=== PATIENT | female | born 1935 | race Caucasian/White ===

== ENCOUNTER 2020-03-09 18:53 | Emergency (ER) | payer OTHER ==
--- OUTSIDE RECORDS SUMMARY | 2020-03-09 18:55 | XMS REPORT ---
:1935 Author Organization [facility] t Address [address] [place] [address] [place] [address] Care Team Providers Name Role Phone Unavailable Unavailable Unavailable Problems This patient has no known problems. Allergies, Adverse Reactions, Alerts This patient has no known allergies or adverse reactions. Medications This patient has no known medications.
--- OUTSIDE RECORDS SUMMARY | 2020-03-09 18:56 | XMS REPORT | Summary of Care ---
:[address] [facility] Address [address] [place] [address] Care Team Providers Name Role Phone Lyle Reilly Atkinson Primary Care Provider Reason for Referral MRI/CAT Scan (Routine) Status Reason Specialty Diagnoses / Referred By Referred To Procedures Contact Contact New Request Diagnostic Diagnoses Myasthenia gravis without exacerbation Bertram Florian Radiology Procedures CT THORAX W WO SHYANNE Rascon MD [address] [place] [address]. [place] [address] Reason for Visit Reason Comments Follow-up Encounter Details Date Type Department Care Team Description 12/27/2019 [facility] Visit [facility] Bertram Florian Myasthenia g ravis without exacerbation (Primary Dx); Neurology-Patti Rascon MD Monocular diplopia of left eye; [address] [place] [address] [place] [phone] Allergies No Known Allergiesdocumented as of this encounter (statuses as of 12/30/2019) Medications Medication Sig Dispensed Refills Start Date End Date Status OMEPRAZOLE ORAL Take by mouth. 0 Active docusate sodium (COLACE Take by mouth. 0 Active ORAL) cranberry conc-ascorbic Take by mouth. 0 Active acid 4,200-20 mg Cap omega-3 fatty acids/fish Take by mouth. 0 Active oil (FISH OIL PEARLS ORAL) cholecalciferol, vitamin Take 1,000 Units 0 Active D3, (VITAMIN D3) 1,000 by mouth daily. unit (25 mcg) tablet BENEFIBER, WHEAT Take by mouth. 0 Active DEXTRIN, ORAL naproxen sodium (ALEVE Take by mouth. 0 Active ORAL) pyridostigmine 60 mg 1/2 tablet by 15 tablet 1 12/27/2019 Active tabletIndications: mouth twice per Myasthenia gravis day. without exacerbation documented as of this encounter (statuses as of 12/30/2019) Active Problems No known active problemsdocumented as of this encounter (statuses as of 12/30/2019) Social History Tobacco Use Types Packs/Day Years Used Date Never Smoker Smokeless Tobacco: Never Used Alcohol Use Drinks/Week oz/Week Comments Never Alcohol Habits Answer Date Recorded How often do you have a drink containing alcohol? Never 09/24/2019 How many drinks containing alcohol do you have on a typical Not asked day when you are drinking? How often do you have six or more drinks on one occasion? No t asked Sex Assigned at Date Recorded Not on file Job Start Date Occupation Industry Not on file Not on file Not on file Travel History Travel Start Travel End No recent travel history available. 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 Chief complaint: Question about myasthenia gravis. History: The patient does return to discuss testing results. 13 minutes of the 25 minute office visit was spent discussing test results. She is still having issues with blurred vision and sometimes shewill see double, she is not noticing any particular pattern to this symptomatology for time or day. She did have blood work done which had shown no positive antibodies, her C-reactive protein also had been unremarkable. Imaging study of the brain did not reveal any particular lesions and chest x-ray was negative. She is wanting to know what the next steps in the evaluation and management will be. PMH: has a past medical history of Arthritis and Cataract. She also has no past medical history of Myocardial infarction, Seizures, Stroke, or Substance abuse. Current Outpatient Medications: pyridostigmine 60 mg tablet, 1/2 tablet by mouth twice per day., Disp: 15 tablet, Rfl: 1 BENEFIBER, WHEAT DEXTRIN, ORAL, Take by mouth., Disp: , Rfl: cholecalciferol, vitamin D3, (VITAMIN D3) 1,000 unit (25 mcg) tablet, Take 1,000 Units by mouthdaily., Disp: , Rfl: cranberry conc-ascorbic acid 4,200-20 mg Cap, Take by mouth., Disp: , Rfl: docusate sodium (COLACE ORAL), Take by mouth., Disp: , Rfl: naproxen sodium (ALEVE ORAL), Take by mouth., Disp: , Rfl: omega-3 fatty acids/fish oil (FISH OIL PEARLS ORAL), Take by mouth., Disp: , Rfl: OMEPRAZOLE ORAL, Take by mouth., Disp: , Rfl: No family history on file. Social History Socioeconomic History Marital status: Spouse name: Not on file Number of children: Not on file Years of education: Not on file Highest education level: Not on file Occupational History Not on file Social Needs Financial resource strain: Not on file Food insecurity: Worry: Not on file Inability: Not on file Transportation needs: Medical: Not on file Non-medical: Not on file Tobacco Use Smoking status: Never Smoker Smokeless tobacco: Never Used Substance and Sexual Activity Alcohol use: Never Frequency: Never Drug use: Never Sexual activity: Not on file Lifestyle Physical activity: Days per week: Not on file Minutes per session: Not on file Stress: Not on file Relationships Social connections: Talks on phone: Not on file Gets together: Not on file Attends buddhist service: Not on file Active member of club or organization: Not on file Attends meetings of clubs or organizations: Not on file Relationship status: Not on file Intimate partner violence: Fear of current or ex partner: Not on file Emotionally abused: Not on file Physically abused: Not on file Forced sexual activity: Not on file Other Topics Concern Not on file Social History Narrative 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 Vital signs: BP 124/75 | Pulse 81 | Temp 37 C (98.6 F) (Oral) | Resp 16 | Ht 5' 2" (1.575 m) | Wt 148 lb(67.1 kg) | BMI 27.07 kg/m General findings: no new focal weakness of arms, UE tone unchanged, no new focal weakness of legs, LE tone unchanged. Patient is alert and oriented times 3, cooperative during the examination. Left eye with decrease downgaze. Ptosis as well with left eye. VFFTC. Corneal reflex not done. Pupils do react to light, but there is a slight anisocoria with left side larger than right. Finger to nose, heel to hansen, finger tapping normal. ASSESSMENT AND RECOMMENDATIONS: ICD-10-CM ICD-9-CM 1. Myasthenia gravis without exacerbation G70.00 358.00 2. Monocular diplopia of left eye H53.2 368.2 3. Blurred vision H53.8 368.8 Impression: Having a negative chest x-ray does make the possibility of a thymoma less but does not completely eliminate that risk. She is going to need a CT scan of the chest. If she gets the CT scan of the chest, if the results are positive for suspected thymoma, then further discussion would be entertained about what should be done. On the short term as well she might also try Mestinon. During someof the 13 minute discussion time, the risks and benefits of this medication were reviewed with her. She will initially try this medication while the CT scan is ordered and conducted. Creation of the note was aided by utilizing a cut/paste operation of text from a Microsoft Word template created with [employer]. The text was dictated into the template via [employer]. OPERATIONS CONTROLLER documented in this encounter Plan of Treatment Date Type Specialty Care Team Description 01/10/2020 Appointment Radiology Bertram Florian MD [address] [place], [place] [address]d. [place], [place] [phone] Name Type Priority Associated Diagnoses Order S chedule CT THORAX W WO CONTRAST IMAGING Routine Myasthenia gravis without Expected: exacerbation 12/27/2019, Exp ires: 12/27/2020 CREATININE LAB Routine Myasthenia gravis without Ex pected: exacerbation 12/27/2019, Exp ires: 12/27/2020 Health Maintenance Due Date Last Done Comments DTaP,Tdap,and Td Vaccines (1 - Tdap) 1946 Zoster Recombinant Vaccine (SHINGRIX) (1 of 2) 1985 Medicare Wellness Visit 2000 Osteoporosis Screening 2000 PNEUMOCOCCAL VACCINES 65+ (1 of 2 - PCV13) 2000 INFLUENZA VACCINE (#1) 2019 documented as of this encounter Results Not on filedocumented in this encounter Visit Diagnoses Diagnosis Myasthenia gravis without exacerbation - Primary Monocular diplopia of left eye Blurred vision Other specified visual disturbances documented in this encounter Insurance Payer Benefit Plan / Subscriber ID Effective Dates Phone Addre ss Type Group HUMANA - HUMANA [id number] 2019-[facility] MANAGED MEDICARE t S MEDICARE documented as of this encounter
--- OUTSIDE RECORDS SUMMARY | 2020-03-09 18:56 | XMS REPORT | Summary of Care ---
:1935 Author Organization [facility] Address [address] [place] [address] Care Team Providers Name Role Phone Melba Lyle Garzaton Primary Care Provider Reason for Referral MRI/CAT Scan (Routine) Status Reason Specialty Diagnoses / Referred By Referred To Procedures Contact Contact Closed Diagnostic Diagnoses Myasthenia gravis without exacerbation Myasthenia gravis without exacerbation Bertram Florian Radiology Procedures CT THORAX W WO CONTRAST CHG CAT SCAN OF CHEST COMBO CT THORAX W WO CONTRAST MD Abiodun [address] [place] [phone] Reason for Visit MRI/CAT Scan (Routine) Status Reason Specialty Diagnoses / Referred By Referred To Procedures Contact Contact Closed Diagnostic Diagnoses Myasthenia gravis without exacerbation Myasthenia gravis without exacerbation Bertram Florian Radiology Procedures CT THORAX W WO CONTRAST CHG CAT SCAN OF CHEST COMBO CT THORAX W WO CONTRAST MD Abiodun [address] [place] [phone] Encounter Details Date Type Department Care Team Description 01/10/2020 Hospital Encounter [facility] Mandy Florian Arrived [place] Comput[facility] MD Tomography [address] [place] [address] [place] [phone] [phone] Allergies No Known Allergiesdocumented as of this encounter (statuses as of 01/11/2020) Medications Medication Sig Dispensed Refills Start Date [...] as of this encounter (statuses as of 01/11/2020) Active Problems No known active problemsdocumented as of this encounter (statuses as of 01/11/2020) Social History Tobacco Use Types Packs/Day Years [...] of this encounter Last Filed Vital Signs Not on filedocumented in this encounter Plan of Treatment Name Type Priority Associated Diagnoses Order S chedule POCT CREATININE LAB Routine Myasthenia gravis without ONCE for 1 Occurrences exacerbation starting 2019 until 01/10/2020 Health Maintenance Due Date Last Done Comments DTaP,Tdap,and Td Vaccines (1 - Tdap) 1946 Zoster Recombinant Vaccine (SHINGRIX) (1 of 2) 1985 Medicare Wellness Visit 2000 Osteoporosis Screening 2000 PNEUMOCOCCAL VACCINES 65+ (1 of 2 - PCV13) 2000 INFLUENZA VACCINE (#1) 2019 documented as of this encounter Procedures Procedure Name Priority Date/Time Associated Diagnosis Comme nts CT THORAX W WO Routine 01/10/2020 8:41 Myasthenia gravis Resu lts for this CONTRAST AM CDT without exacerbation procedu re are in the results section. NOTICE OF PRIVACY Routine 01/10/2020 7:47 PRACTICES AM CDT CONSENT/REFUSAL FOR Routine 01/10/2020 7:46 DIAGNOSIS AND AM CDT TREATMENT ASSIGNMENT OF Routine 01/10/2020 7:46 BENEFITS AM CDT HB CREATININE BLOOD Routine 01/10/2020 7:37 Resu lts for this AM CDT procedure are i n the results section. documented in this encounter Results CT THORAX W WO CONTRAST (01/10/2020 8:41 AM CDT) Specimen Impressions Performed At PACS/VR/DOSE 1. No evidence for mediastinal mass is p resent to suggest thymoma. 2. Multiple nodular areas of gastric wall thickening a re identified within the gastric cardia and along the greater curvature of the stomach. The findings are suspicious for multifocal gastric masses. Upper endoscopy is recommended for further evaluation. 3. Bilateral renal cysts are present. 4. Cholecystectomy has been performed. RL: 2831 20 9:53 PM Narrative Performed At ORDERING PHYSICIAN: BERTRAM FLORIAN PACS/VR/DOSE CHEST CT ANGIOGRAM WITHOUT AND WITH INTR AVENOUS CONTRAST. DATE: 01/10/2020 CLINICAL INDICATIONS: Myasthenia gravis, evaluate for thymoma. TECHNIQUE: Axial CT images of the chest were obtaine d before and following the administration of 100 cc of Omnipaqu e 350 intravenously. 3D MIP reconstructions were also obtained. CT s can was performed according to ALARA (As Low as Reasonably Achievable). COMPARISON: None FINDINGS: The heart and great vessels op acify with contrast normally. No evidence for acute pulmonary embolus, th oracic aortic dissection or aneurysm is identified. The heart size i s normal. Evaluation of the lung windows demonstra chi no evidence for infiltrate, pleural effusion or pneumothorax. No zoila picious pulmonary nodules are identified. No pathologically enlarged mediastinal, hilar or axill jermaine lymph nodes are identified. The visualized upper abdomen demonstrates postoperative changes following cholecystectomy. Bilateral renal cysts are p resent. There appears to be patchy nodular soft tissue thickening in the gas tric cardia and along the greater curvature of the stomach, as visualized on image 243 of series 23 and image 276 of series 23. Gastric masses are susp ected to be present. Upper endoscopy is recommended for furth er characterization. No acute osseous abnormality is visualized. Procedure Note [facility], Radiant Results Inft User - 2019 9:55 PM CDT ORDERING PHYSICIAN: BERTRAM FLORIAN CHEST CT ANGIOGRAM WITHOUT AND WITH INTR AVENOUS CONTRAST. DATE: 01/10/2020 CLINICAL INDICATIONS: Myasthenia gravis, evaluate for thymoma. TECHNIQUE: Axial CT images of the chest were obtained before and following the administration of 100 cc of Omnipaqu e 350 intravenously. 3D MIP reconstructions were also obtained. CT s can was performed according to ALARA (As Low as Reasonably Achievable). COMPARISON: None FINDINGS: The heart and great vessels op acify with contrast normally. No evidence for acute pulmonary embolus, th oracic aortic dissection or aneurysm is identified. The heart size i s normal. Evaluation of the lung windows demonstra chi no evidence for infiltrate, pleural effusion or pneumothorax. No zoila picious pulmonary nodules are identified. No pathologically enlarged mediastinal, hilar or axillary lymph nodes are identified. The visualized upper abdomen demonstrates postoperative changes following cholecystectomy. Bilateral gabby al cysts are present. There appears to be patchy nodular soft tissue thicken ing in the gastric cardia and along the greater curvature of the stomach, as visualized on image 243 of series 23 and image 276 of series 23. Gastric m asses are suspected to be present. Upper endoscopy is recommended for furth er characterization. No acute osseous abnormality is visualized. IMPRESSION 1. No evidence for mediastinal mass is p resent to suggest thymoma. 2. Multiple nodular areas of gastric wal l thickening are identified within the gastric cardia and along the greater curvature of the stomach. The findings are suspicious for multifocal g astric masses. Upper endoscopy is recommended for further evaluation. 3. Bilateral renal cysts are present. 4. Cholecystectomy has been performed. RL: 2831 Performing Organization Address City/State/Zipcode Phone Number PACS/VR/DOSE POCT CREATININE (01/10/2020 7:37 AM CDT) Pathologist Sig nature POCT Creatinine 1.4 (H) 0.5 - 1.1 mg/dL [facility] Specimen Blood - VENOUS Performing Organization Address City/[facility]/Zipcode Phone Number [facility] CLIA: [id number], [address] [place] [address] documented in this encounter Visit Diagnoses Diagnosis Myasthenia gravis without exacerbation documented in this encounter Administered Medications Medication Order MAR Action Action Date Dose Rate Site iohexol (OMNIPAQUE 350 BULK-100 Given 01/10/2020 8:35 AM CDT 80 mL mL) injection 100 mL 100 mL, Intravenous, ONCE, 1 dose, 01/10/20 at 0815, Routine documented in this encounter Insurance Payer Benefit Plan / Subscriber ID Effective Dates Phone Addre ss Type Group HUMANA - HUMANA [id number] 2019-[facility] Adv MANAGED MEDICARE t FFS MEDICARE documented as of this encounter
--- OUTSIDE RECORDS SUMMARY | 2020-03-09 18:56 | XMS REPORT | Summary of Care ---
:1935 Author Organization [facility] Address [address] [place] [address] Care Team Providers Name Role Phone Lyle Reilly Garvin Primary Care Provider Reason for Referral MRI/CAT Scan (Routine) Status Reason Specialty Diagnoses / Referred By Referred To Procedures Contact Contact New Request Diagnostic Diagnoses Myasthenia gravis without exacerbation Bertram Florian Radiology Procedures CT THORAX W WO SHYANNE Rascon MD [address] [place] [address]. [place] [address] Reason for Visit Reason Comments Follow-up Encounter Details Date Type Department Care Team Description 12/27/2019 Office Visit [facility] Bertram Florian Myasthenia g ravis without exacerbation (Primary Dx); Neurology-Patti Rascon MD Monocular diplopia of left eye; [address] [place] [address] [place] [phone] Allergies No Known Allergiesdocumented [...] Comments Blood Pressure 124/75 12/27/2019 11:39 AM DATABASE DBA Pulse 81 12/27/2019 11:39 AM DATABASE DBA Temperature 37 C (98.6 F) 12/27/2019 11:39 AM DATABASE DBA Respiratory Rate 16 12/27/2019 11:39 AM DATABASE DBA Oxygen Saturation - - Inhaled Oxygen Concentration - - Weight 67.1 kg (148 lb) 12/27/2019 11:39 AM DATABASE DBA Height 157.5 cm (5' 2") 12/27/2019 11:39 AM DATABASE DBA Body Mass Index 27.07 12/27/2019 11:39 AM DATABASE DBA documented in this encounter Progress Notes Bertram [...] file Gets together: Not on file Attends baptism service: Not on file Active member of [...] file Social History Narrative 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 Vital signs: [...] from a Microsoft Word template created with [employer]. The text was dictated into the template via [employer] Naturally Speaking. BASE DBA documented in this encounter Plan of Treatment Date Type Specialty Care Team Description 01/10/2020 Appointment Radiology Bertram Florian MD [address] [place], [place] [address]. [place], [place] [phone] Name Type Priority Associated [...] Addre ss Type Group HUMANA - HUMANA [id number] 2019-[facility] MANAGED MEDICARE t S MEDICARE documented as of this encounter
--- OUTSIDE RECORDS SUMMARY | 2020-03-09 18:56 | XMS REPORT | Summary of Care ---
:1935 Author Organization [facility] Address [address] [place] [address] Care Team Providers Name Role Phone Lyle Reilly Primary Care Provider Reason for Visit Reason Comments Refill Request pyridostigmine 60 mg tablet Encounter Details Date Type Department Care Team Description 01/24/2020 Telephone [facility] Bertram Florian, Refill Request Neurology-Patti MICHEL (pyridostigmine [address]) [address], [address] [place] [phone] Allergies No Known Allergiesdocumented as of this encounter (statuses as of 01/24/2020) Medications Medication Sig Dispensed Refills Start Date End Date Status OMEPRAZOLE ORAL Take by 0 Acti ve mouth. docusate sodium Take by 0 Acti ve (COLACE ORAL) mouth. cranberry Take by 0 Active conc-ascorbic acid mouth. 4,200-20 mg Cap omega-3 fatty Take by 0 Active acids/fish oil (FISH mouth. OIL PEARLS ORAL) cholecalciferol, Take 1,000 0 Ac tive vitamin D3, (VITAMIN Units by D3) 1,000 unit (25 mouth mcg) tablet daily. BENEFIBER, WHEAT Take by 0 Act prabha DEXTRIN, ORAL mouth. naproxen sodium Take by 0 Acti ve (ALEVE ORAL) mouth. pyridostigmine 60 mg 1/2 tablet 15 tablet 3 01/24/2020 Active tabletIndications: by mouth Myasthenia gravis twice per without exacerbation day. pyridostigmine 60 mg 1/2 tablet 15 tablet 1 12/27/2019 02 Discontinued tabletIndications: by mouth 0 ( Reorder) Myasthenia gravis twice per without exacerbation day. documented as of this encounter (statuses as of 01/24/2020) Active Problems No known active problemsdocumented as of this encounter (statuses as of 01/24/2020) Social History Tobacco Use Types Packs/Day Years [...] filedocumented in this encounter Plan of Treatment Health Maintenance Due Date Last Done Comments [...] gravis without exacerbation documented in this encounter Insurance Payer Benefit Plan / Subscriber ID Effective Dates Phone Addre ss Type Group HUMANA - HUMANA [id number] 2019-[facility] Adv MANAGED MEDICARE t FFS MEDICARE documented as of this encounter
--- OUTSIDE RECORDS SUMMARY | 2020-03-09 18:56 | XMS REPORT | Summary of Care ---
:1935 Author Organization [facility] Address [address] [place] [address] Care Team Providers Name Role Phone Lyle Reilly Primary Care Provider Encounter Details Date Type Department Care Team Description 11/15/2019 Orders Only [facility] Doctor Unassigned, No [address] [facility] [place] [address] [address] [place] [address] Allergies No Known Allergiesdocumented as of this encounter (statuses as of 11/24/2019) Medications Medication Sig Dispensed Refills Start Date End Date Status OMEPRAZOLE ORAL Take by mouth. 0 Active docusate sodium (COLACE Take by mouth. 0 Active ORAL) cranberry conc-ascorbic Take by mouth. 0 Active acid 4,200-20 mg Cap omega-3 fatty Take by mouth. 0 Active acids/fish oil (FISH OIL PEARLS ORAL) cholecalciferol, Take 1,000 Units 0 Active vitamin D3, (VITAMIN by mouth daily. D3) 1,000 unit (25 mcg) tablet BENEFIBER, WHEAT Take by mouth. 0 Active DEXTRIN, ORAL naproxen sodium (ALEVE Take by mouth. 0 Active ORAL) documented as of this encounter (statuses as of 11/24/2019) Active Problems No known active problemsdocumented as of this encounter (statuses as of 11/24/2019) Social History Tobacco Use Types Packs/Day Years Used Date Never Smoker Alcohol Use Drinks/Week oz/Week Comments Never Alcohol [...] filedocumented in this encounter Plan of Treatment Date Type Specialty Care Team Description 12/20/2019 Office Visit Neurology Bertram Florian MD [address] [place] [address]. 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 Adv MANAGED MEDICARE t S MEDICARE documented as of this encounter
--- OUTSIDE RECORDS SUMMARY | 2020-03-09 18:56 | XMS REPORT | Summary of Care ---
:1935 Author Organization [facility] Address [address] [place] [id number] Care Team Providers Name Role Phone Lyle Reilly Primary Care Provider Reason for Visit Reason Comments Follow-up Results MRI Encounter Details Date Type Department Care Team Description 11/15/2019 Office Visit [facility] Bertram Florian Myasthenia g ravis without exacerbation (Primary Dx); Neurology-Patti Rascon MD Monocular diplopia of left eye; [address] [place] [address] Cerebrovas cular disease [facility], [address] [facility] [place] [phone] Allergies No Known Allergiesdocumented as of this encounter (statuses as of 11/16/2019) Medications Medication Sig Dispensed Refills Start Date [...] as of this encounter (statuses as of 11/16/2019) Active Problems No known active problemsdocumented as of this encounter (statuses as of 11/16/2019) Social History Tobacco Use Types Packs/Day Years [...] Sign Reading Time Taken Comments Blood Pressure 134/73 11/15/2019 2:41 PM OUTSOLE CEMENTER Pulse 77 11/15/2019 2:41 PM OUTSOLE CEMENTER Temperature 36.3 C (97.3 F) 11/15/2019 2:41 PM OUTSOLE CEMENTER Respiratory Rate 16 11/15/2019 2:41 PM OUTSOLE CEMENTER Oxygen Saturation - - Inhaled Oxygen Concentration - - Weight 67.2 kg (148 lb 4 oz) 11/15/2019 2:41 PM OUTSOLE CEMENTER Height 157.5 cm (5' 2") 11/15/2019 2:41 PM OUTSOLE CEMENTER Body Mass Index 27.12 11/15/2019 2:41 PM OUTSOLE CEMENTER documented in this encounter Progress Notes Bertram Florian MD - 11/15/2019 2:40 PM CST Neurology Clinic Note: CHIEF COMPLAINT / REASON FOR VISIT: Follow up for diplopia. The patient was seen, and examined with SENIOR PROJECT LEADER/TEAM LEAD Marina Rodriguez. The ultimate impression and plan of care was also discussed with the SENIOR PROJECT LEADER/TEAM LEAD. HISTORY OF PRESENT ILLNESS: Rupali Yee is a 84 year old female presenting for follow up for blurry vision and diplopia involving the left eye. She reports that she has blurry vision in her left eye that is worse with activities straining her eyes like reading. It also worsens when turning her head. She denies loss of vision, headache, dizziness, and syncope. Labs taken and last visit were negative for acetylcholine binding ab and acetylcholine blocking ab. Thyroid function tests were also within normal limits. Brain MRI and CXR were done to rule out any lesions or neoplasms. She states it is not constant, but continues to happen in the left eye. She states it is not getting any worse. She reports going to her handle machine operator at [employer] [facility] [facility] recently. ADDITIONAL PAST MEDICAL AND SURGICAL HISTORY: Past Medical History: Diagnosis Date Arthritis Cataract Past Surgical History: Procedure Laterality Date APPENDECTOMY EYE SURGERY HYSTERECTOMY JOINT SURGERY TONSILLECTOMY CURRENT MEDICATIONS: Current Outpatient Medications: BENEFIBER, WHEAT DEXTRIN, ORAL, Take by mouth., [...] ORAL, Take by mouth., Disp: , Rfl: FAMILY HISTORY: No family history pertinent to the visit was present. SOCIAL HISTORY: Denies tobacco, EtOH, illicit drugs. REVIEW OF SYSTEMS: ALLERGY/IMMUNOLOGY: Low resistance to infection: no. Environmental allergies: no. CARDIOVASCULAR: Chest pain or angina: no. Irregular heart rhythm: no. CONSTITUTIONAL: Recent weight changes: no. Good general health lately: no. Recurrent fevers, chills, sweats: no. Extreme fatigue: no. Frequent nausea, vomiting: no. Difficulty sleeping: no. EARS, NOSE, MOUTH, THROAT: Change in hearing: no. Ringing in the ears: no. Recent nose bleeds: no. Chronic sinus problems: no. Voice changes: no. EYES: Change in vision: no. Glaucoma: no. ENDOCRINE: Heat or cold intolerance: no. Excess thirst or urination: no. GASTROINTESTINAL: Change in appetite: no. Severe heart burn: no. Vomiting blood: no. Frequent diarrhea: no. Constipation: no. Black or bloody stools: no. Abdominal pain: no. GENITOURINARY: Kidney stone: no. Blood in urine: no. Burning with urination: no. Difficult/frequent urination: no. Lack of bladder control: no. Sexually transmitted disease: no. Change in sexualfunction: no. HEMATOLOGIC/LYMPHATIC: Easy bruising: no. Frequent bleeding: no. Enlarged lymph nodes: no. INTEGUMENTARY: Unusual or prolonged rashes: no. Breast pain or lump: no. Change in hair or nails:no. MUSCULOSKELETAL: Joint swelling: no. Difficulty walking: no. NEUROLOGICAL: Headaches: no. Numbness / tingling sensation: no. Weakness or paralysis: no. Convulsions or seizures: no. Change in memory/concentration: no. Loss or blurring of vision or double vision: no. Black-outs / dizziness: no. Memory loss or confusion: no. Other neurological problems: no. PAIN: Joint stiffness or pain: no. Muscle pain: no. Neck pain: no. Back pain: no. Other pain: no. PSYCHIATRIC: Nervousness: no. Depression: no. Other: no. RESPIRATORY: Breathing problems / shortness of breath: no. Coughing up blood: no. Chronic cough: no. I advised patient to inform PCP about all of the above issues. PHYSICAL EXAM: GENERAL: No acute distress. Alert and oriented X4. HEENT: Pupils equal, round, and reactive to light and accomodation. Extraocular movements intact without nystagmus. HEART: Regular rate and rhythm, with no murmurs, rubs, or gallops. LUNGS: Clear to auscultation bilaterally. ABDOMEN: Soft, nontender, nondistended, with normal bowel sounds present. EXTREMITIES: No cyanosis, clubbing, or edema. CAROTIDS: No bruits heard on either side. NEUROLOGICAL: Pupils equal, round, and reactive to light and accomodation intact (cranial nerves 2 and 3). Extraocular movements (cranial nerves 3, 4, and 6) intact without nystagmus. However, she has diminished left lateral/down gaze and intermittent reduced left inferior/down gaze. Peripheral field intact, no loss of vision. Double vision with peripheral field vision check left lateral, and left inferior lateral. Bilateral ophthalmoscopic exam reveals no papilledema. Facial sensation (cranial nerve 5) intact and symmetrical. Facial strength (cranial nerve 7) intact and symmetrical. Hearing (cranial nerve 8) intact to finger rub bilaterally. Speech and palate movement (cranial nerve 9 and 10) intact with symmetrical palate elevation. Shoulder shrug and head turning (cranial nerve 11) intact bilaterally. Tongue protrusion and lateral movements (cranial nerve 12) intact and symmetrical. Strength 5/5 in all extremities. Light touch sensation intact and symmetrical. Deep tendon reflexes 2+ in all extremities. Babinski testing reveals downgoing toes bilaterally.Negative Bonilla bilaterally. Rapid finger tapping intact bilaterally. [id number] intact bilaterally. Tandem gait intact. Standard gait intact. Recent memory intact. Remote memory intact. Attention span and concentration intact. Language intact. Good fund of knowledge. VITAL SIGNS: BP 134/73 | Pulse 77 | Temp 36.3 C (97.3 F) (Oral) | Resp 16 | Ht 5' 2" (1.575 m) | Wt 148 lb 4 oz (67.2 kg) | BMI 27.12 kg/m WE REVIEWED THE PATIENT'S LABS AND STUDIES. 11/04/2019 MR BRAIN WO CONTRAST COMPARISON: None. HISTORY: 84-year-old female who is currently suspected to have myasthenia gravis, complaining of diplopia and left eye blurry vision. TECHNIQUE: A multi weighted multiplanar 1.5 Ada MRI of the brain was obtained without contrast. FINDINGS: The ventricles and cerebral sulci are normal in caliber and configuration. No midline shift, hydrocephalus or pathological extra-axial fluid collection is present. The basal cisterns are unremarkable. No restricted diffusion is present to suggest acute infarct. Scattered T2/FLAIR white matter hyperintensities are seen, consistent with small vessel ischemic changes. No abnormal gradient blooming. The T2 flow voids for the major intracranial vessels are unremarkable. No abnormal fluid signal is present in the mastoid air cells. A small right maxillary retention cyst is seen. IMPRESSION No acute intracranial findings. Mild small vessel ischemic changes. Preliminary Report Dictated by Resident: Zee Constantino I, Greta Sims MD., have reviewed this study and agree with the above Report. 11/09/2019 CXR HISTORY: Possible Gen syndrome. TECHNIQUE: PA and lateral views of the chest are obtained. No prior chest CT available for comparison. FINDINGS: No acute pneumonia detected. No pneumothorax or pleural effusion or pulmonary congestion. Cardiothoracic ratio of approximately 12.5/29.1 cm is consistent with normal cardiac size. Elongated and dilated thoracic aorta noted. Cholecystectomy noted. CONCLUSIONS: No signs of acute cardiopulmonary disease. ASSESSMENT AND PLAN: ICD-10-CM ICD-9-CM 1. Myasthenia gravis without exacerbation G70.00 358.00 2. Monocular diplopia of left eye H53.2 368.2 3. Cerebrovascular disease I67.9 437.9 Rupali Yee is a 84 year old female presenting for follow up with question of myasthenia gravisand also blurred vision. Acetylcholine binding ab and acetylcholine blocking ab were negative. However, this does not rule out myasthenia gravis. She has no peripheral field deficits or vision loss. MRI brain and CXR negative for mass or neoplasm as an etiology. However, when reviewing images with Dr. Florian, there is a questionable small stroke in the right medulla and a signal change in left rylie. She will need to go to an golf teacher for evaluation to rule out optical etiology. She would like to go to the golf teacher upstairs here in town, as she does not want to drive far. Consider CRP. It is possible, she has ocular myasthenia, consider a trial of mestinon at the next OV. Myasthenia gravis without exacerbation (primary encounter diagnosis) Plan: C-REACTIVE PROTEIN to rule out myasthenia gravis Monocular diplopia of left eye Plan: Refer to ophthalmology for evaluation and consult. SENIOR PROJECT LEADER/TEAM LEAD and Dr. Florian spent 25 minutes on the visit, and greater than 13 minutes was spent in discussing and reviewing the digital MRI images. Plan of care discussed with Dr. Florian, who was asked for opinion on assessment, diagnosis and planof care regarding patient. Plan also discussed with patient/family, all questions answered. Return to clinic in 1 months. Marina CAIN, Department of Neurology arina Rodriguez ANP - 11/15/2019 2:40 PM OUTSOLE CEMENTER CHIEF COMPLAINT / REASON FOR VISIT: Follow up for diplopia HISTORY OF PRESENT ILLNESS: Rupali Yee is a 84 year old female presenting for follow up for blurry vision and diplopia involving the left eye. She reports that she has blurry vision in her left eye that is worse with activities straining her eyes like reading. It also worsens when turning her head. She denies loss of vision, headache, dizziness, and syncope. Labs taken and last visit were negative for acetylcholine binding ab and acetylcholine blocking ab. Thyroid function tests were also within normal limits. Brain MRI and CXR were done to rule out any lesions or neoplasms. She states it is not constant, but continues to happen in the left eye. She states it is not getting any worse. She reports going to her handle machine operator at [employer] [employer] [facility] recently. ADDITIONAL PAST MEDICAL AND SURGICAL HISTORY: Past Medical History: Diagnosis Date Arthritis Cataract Past Surgical History: Procedure Laterality Date APPENDECTOMY EYE SURGERY HYSTERECTOMY JOINT SURGERY TONSILLECTOMY CURRENT MEDICATIONS: Current Outpatient Medications: BENEFIBER, WHEAT DEXTRIN, ORAL, Take by mouth., [...] ORAL, Take by mouth., Disp: , Rfl: FAMILY HISTORY: No family history on file. SOCIAL HISTORY: Denies tobacco, EtOH, illicit drugs. REVIEW OF SYSTEMS: ALLERGY/IMMUNOLOGY: Low resistance to infection: no. Environmental allergies: no. CARDIOVASCULAR: Chest pain or angina: no. Irregular heart rhythm: no. CONSTITUTIONAL: Recent weight changes: no. Good general health lately: no. Recurrent fevers, chills, sweats: no. Extreme fatigue: no. Frequent nausea, vomiting: no. Difficulty sleeping: no. EARS, NOSE, MOUTH, THROAT: Change in hearing: no. Ringing in the ears: no. Recent nose bleeds: no. Chronic sinus problems: no. Voice changes: no. EYES: Change in vision: no. Glaucoma: no. ENDOCRINE: Heat or cold intolerance: no. Excess thirst or urination: no. GASTROINTESTINAL: Change in appetite: no. Severe heart burn: no. Vomiting blood: no. Frequent diarrhea: no. Constipation: no. Black or bloody stools: no. Abdominal pain: no. GENITOURINARY: Kidney stone: no. Blood in urine: no. Burning with urination: no. Difficult/frequent urination: no. Lack of bladder control: no. Sexually transmitted disease: no. Change in sexualfunction: no. HEMATOLOGIC/LYMPHATIC: Easy bruising: no. Frequent bleeding: no. Enlarged lymph nodes: no. INTEGUMENTARY: Unusual or prolonged rashes: no. Breast pain or lump: no. Change in hair or nails:no. MUSCULOSKELETAL: Joint swelling: no. Difficulty walking: no. NEUROLOGICAL: Headaches: no. Numbness / tingling sensation: no. Weakness or paralysis: no. Convulsions or seizures: no. Change in memory/concentration: no. Loss or blurring of vision or double vision: no. Black-outs / dizziness: no. Memory loss or confusion: no. Other neurological problems: no. PAIN: Joint stiffness or pain: no. Muscle pain: no. Neck pain: no. Back pain: no. Other pain: no. PSYCHIATRIC: Nervousness: no. Depression: no. Other: no. RESPIRATORY: Breathing problems / shortness of breath: no. Coughing up blood: no. Chronic cough: no. I advised patient to inform PCP about all of the above issues. PHYSICAL EXAM: GENERAL: No acute distress. Alert and oriented X4. HEENT: Pupils equal, round, and reactive to light and accomodation. Extraocular movements intact without nystagmus. HEART: Regular rate and rhythm, with no murmurs, rubs, or gallops. LUNGS: Clear to auscultation bilaterally. ABDOMEN: Soft, nontender, nondistended, with normal bowel sounds present. EXTREMITIES: No cyanosis, clubbing, or edema. CAROTIDS: No bruits heard on either side. NEUROLOGICAL: Pupils equal, round, and reactive to light and accomodation intact (cranial nerves 2 and 3). Extraocular movements (cranial nerves 3, 4, and 6) intact without nystagmus. However, she has diminished left lateral/down gaze and intermittent reduced left inferior/down gaze. Peripheral field intact, no loss of vision. Double vision with peripheral field vision check left lateral, and left inferior lateral. Bilateral ophthalmoscopic exam reveals no papilledema. Facial sensation (cranial nerve 5) intact and symmetrical. Facial strength (cranial nerve 7) intact and symmetrical. Hearing (cranial nerve 8) intact to finger rub bilaterally. Speech and palate movement (cranial nerve 9 and 10) intact with symmetrical palate elevation. Shoulder shrug and head turning (cranial nerve 11) intact bilaterally. Tongue protrusion and lateral movements (cranial nerve 12) intact and symmetrical. Strength 5/5 in all extremities. Light touch sensation intact and symmetrical. Deep tendon reflexes 2+ in all extremities. Babinski testing reveals downgoing toes bilaterally.Negative Bonilla bilaterally. Rapid finger tapping intact bilaterally. [id number] intact bilaterally. Tandem gait intact. Standard gait intact. Recent memory intact. Remote memory intact. Attention span and concentration intact. Language intact. Good fund of knowledge. VITAL SIGNS: BP 134/73 | Pulse 77 | Temp 36.3 C (97.3 F) (Oral) | Resp 16 | Ht 5' 2" (1.575 m) | Wt 148 lb 4 oz (67.2 kg) | BMI 27.12 kg/m I REVIEWED THE PATIENT'S LABS AND STUDIES. 11/04/2019 MR BRAIN WO CONTRAST COMPARISON: None. HISTORY: 84-year-old female who is currently suspected to have myasthenia gravis, complaining of diplopia and left eye blurry vision. TECHNIQUE: A multi weighted multiplanar 1.5 Ada MRI of the brain was obtained without contrast. FINDINGS: The ventricles and cerebral sulci are normal in caliber and configuration. No midline shift, hydrocephalus or pathological extra-axial fluid collection is present. The basal cisterns are unremarkable. No restricted diffusion is present to suggest acute infarct. Scattered T2/FLAIR white matter hyperintensities are seen, consistent with small vessel ischemic changes. No abnormal gradient blooming. The T2 flow voids for the major intracranial vessels are unremarkable. No abnormal fluid signal is present in the mastoid air cells. A small right maxillary retention cyst is seen. IMPRESSION No acute intracranial findings. Mild small vessel ischemic changes. Preliminary Report Dictated by Resident: Zee Constantino I, Greta Sims MD., have reviewed this study and agree with the above Report. 11/09/2019 CXR HISTORY: Possible Gen syndrome. TECHNIQUE: PA and lateral views of the chest are obtained. No prior chest CT available for comparison. FINDINGS: No acute pneumonia detected. No pneumothorax or pleural effusion or pulmonary congestion. Cardiothoracic ratio of approximately 12.5/29.1 cm is consistent with normal cardiac size. Elongated and dilated thoracic aorta noted. Cholecystectomy noted. CONCLUSIONS: No signs of acute cardiopulmonary disease. ASSESSMENT AND PLAN: Rupali Yee is a 84 year old female presenting for follow up for myasthenia gravis and blurred vision. Acetylcholine binding ab and acetylcholine blocking ab were negative. However, this does not rule out myasthenia gravis. She has no peripheral field deficits or vision loss. MRI brain and CXR negative for mass or neoplasm as an etiology. However, when reviewing images with Dr. Florian, thereis a questionable small stroke in the right medulla. She will need to go to an golf teacher for evaluation to rule out optical etiology. She would like to go to the golf teacher upstairs here in town, as she does not want to drive far. Consider CRP. It is possible, she has ocular myasthenia, consider a trial of mestinon at the next OV. Myasthenia gravis without exacerbation (primary encounter diagnosis) Plan: C-REACTIVE PROTEIN Monocular diplopia of left eye Plan: Refer to ophthalmology for evaluation and consult. Plan of care discussed with Dr. Florian, who was asked for opinion on assessment, diagnosis and planof care regarding patient. Plan also discussed with patient/family, all questions answered. Return to clinic in 1 months. Marina CAIN, Department of Neurology documented in this encounter Plan of Treatment Date Type Specialty Care Team Description 12/20/2019 Office Visit Neurology Bertram Florian MD [address] [place] [address]. [place], [place] [phone] Health Maintenance Due Date Last Done Comments DTaP,Tdap,and Td Vaccines (1 - Tdap) 1946 Zoster Recombinant Vaccine (SHINGRIX) (1 of 2) 1985 Medicare Wellness Visit 2000 Osteoporosis Screening 2000 PNEUMOCOCCAL VACCINES 65+ (1 of 2 - PCV13) 2000 INFLUENZA VACCINE (#1) 2019 documented as of this encounter Results C-REACTIVE PROTEIN (11/15/2019 3:31 PM OUTSOLE CEMENTER) Pathologist Sig nature CRP 0.1 <0.8 mg/dL [facility] Specimen Blood Performing Organization Address City/State/Zipcode Phone Number [facility] CLIA: [id number], [address] [place] [address] [facility] documented in this encounter Visit Diagnoses Diagnosis Myasthenia gravis without exacerbation - Primary Monocular diplopia of left eye Cerebrovascular disease Cerebrovascular disease, unspecified documented in this encounter Insurance Payer Benefit Plan / Subscriber ID Effective Dates Phone Addre ss Type Group HUMANA - HUMANA [id number] [facility] MANAGED MEDICARE t FFS MEDICARE documented as of this encounter
--- OUTSIDE RECORDS SUMMARY | 2020-03-09 18:56 | XMS REPORT | Summary of Care ---
:1935 Author Organization [facility] Address [address] [place] [id number] Care Team Providers Name Role Phone Lyle Reilly Primary Care Provider Reason for Visit Reason Comments Follow-up Results MRI Encounter Details Date Type Department Care Team Description 11/15/2019 Office Visit [facility] Bertram Florian Myasthenia g ravis without exacerbation (Primary Dx); Neurology-Patti Rascon MD Monocular diplopia of left eye; [address] [place] [address] Cerebrovas cular disease [facility], [address] [facility] [place] [id number] Allergies No Known Allergiesdocumented as of this [...] Comments Blood Pressure 134/73 11/15/2019 2:41 PM DIRECTOR LOSS PREVENTION Pulse 77 11/15/2019 2:41 PM DIRECTOR LOSS PREVENTION Temperature 36.3 C (97.3 F) 11/15/2019 2:41 PM DIRECTOR LOSS PREVENTION Respiratory Rate 16 11/15/2019 2:41 PM DIRECTOR LOSS PREVENTION Oxygen Saturation - - Inhaled Oxygen Concentration - - Weight 67.2 kg (148 lb 4 oz) 11/15/2019 2:41 PM DIRECTOR LOSS PREVENTION Height 157.5 cm (5' 2") 11/15/2019 2:41 PM DIRECTOR LOSS PREVENTION Body Mass Index 27.12 11/15/2019 2:41 PM DIRECTOR LOSS PREVENTION documented in this encounter Progress Notes Bertram Florian MD - 11/15/2019 2:40 PM CST Neurology Clinic Note: CHIEF COMPLAINT / REASON FOR VISIT: Follow up for diplopia. The patient was seen, and examined with SHRIMP BOAT CAPTAIN Marina Rodriguez. The ultimate impression and plan of care was also discussed with the SHRIMP BOAT CAPTAIN. HISTORY OF PRESENT ILLNESS: Rupali Yee is [...] any worse. She reports going to her tower cleaner at [facility] recently. ADDITIONAL PAST MEDICAL AND SURGICAL HISTORY: [...] Bonilla bilaterally. Rapid finger tapping intact bilaterally. Ybmb-cy-argm intact bilaterally. Tandem gait intact. Standard gait [...] She will need to go to an fellmongering machine operator for evaluation to rule out optical etiology. She would like to go to the fellmongering machine operator upstairs here in town, as she does not want to drive far. Consider CRP. It is possible, she has ocular myasthenia, consider a trial of mestinon at the next OV. Myasthenia gravis without exacerbation (primary encounter diagnosis) Plan: C-REACTIVE PROTEIN to rule out myasthenia gravis Monocular diplopia of left eye Plan: Refer to ophthalmology for evaluation and consult. SHRIMP BOAT CAPTAIN and Dr. Florian spent 25 minutes on [...] months. Marina CAIN, Department of Neurology arina Rodrigeuz ANP - 11/15/2019 2:40 PM DIRECTOR LOSS PREVENTION CHIEF COMPLAINT / REASON FOR VISIT: Follow [...] any worse. She reports going to her tower cleaner at [facility] recently. ADDITIONAL PAST MEDICAL AND SURGICAL HISTORY: [...] Bonilla bilaterally. Rapid finger tapping intact bilaterally. Szjs-by-pfdq intact bilaterally. Tandem gait intact. Standard gait [...] She will need to go to an fellmongering machine operator for evaluation to rule out optical etiology. She would like to go to the fellmongering machine operator upstairs here in town, as she does [...] 12/20/2019 Office Visit Neurology Bertram Florian MD [address] [place] [address]. [place], [place] [phone] Health Maintenance Due Date Last Done Comments DTaP,Tdap,and Td Vaccines (1 - Tdap) 1946 Zoster Recombinant Vaccine (SHINGRIX) (1 of 2) 1985 Medicare Wellness Visit 2000 Osteoporosis Screening 2000 PNEUMOCOCCAL VACCINES 65+ (1 of 2 - PCV13) 2000 INFLUENZA VACCINE (#1) 2019 documented as of this encounter Results C-REACTIVE PROTEIN (11/15/2019 3:31 PM DIRECTOR LOSS PREVENTION) Pathologist Sig nature CRP 0.1 <0.8 mg/dL [facility] Specimen Blood Performing Organization Address City/State/Zipcode Phone Number [facility] CLIA: [id number], [address] [place] [address] [facility] documented in this encounter Visit Diagnoses Diagnosis Myasthenia gravis without exacerbation - Primary Monocular diplopia of left eye Cerebrovascular disease Cerebrovascular disease, unspecified documented in this encounter Insurance Payer Benefit Plan / Subscriber ID Effective Dates Phone Addre ss Type Group HUMANA - HUMANA [id number] [facility] Adv MANAGED MEDICARE t FFS MEDICARE documented as of this encounter
[2020-03-09 19:53] LABS: Basophils % 1.2 % (0-1.3); Hematocrit 34.7 % (36.0-45.0); Lymphocytes % 36.1 % (15.3-44.8); MPV 8.9 fL (7.6-11.3); RBC Red Blood Cell Count 3.81 M/uL (3.86-4.86)
[2020-03-09 20:23] LABS: ALT/SGPT 14 U/L (12-78); AST/SGOT 19 U/L (15-37); Albumin 3.5 g/dL (3.4-5.0); Alkaline Phosphatase 75 U/L (45-117); BUN Blood Urea Nitrogen 23 mg/dL (7-18); Bicarbonate 26 mmol/L (21-32); Bilirubin Direct < 0.1 mg/dL (0-0.2); Bilirubin Total 0.4 mg/dL (0.2-1.0); Glucose Level 110 mg/dL (74-106); Lipase 310 U/L (73-393); Sodium Level 138 mmol/L (136-145)
[2020-03-09] MEDS ORDERED: NA CHLORIDE 0.9% 250 ML ONE (22:19)
--- NOTE | 2020-03-09 23:13 | EDPHYS ---
Physician Documentation [facility] Name: Rupali Yee Age: 84 yrs Sex: Female : 1935 Arrival Date: 03/09/2020 Time: 18:58 Bed 20 Private MD: Lyle Reilly T ED Physician Kevin Whitt HPI: 03/09 19:45 This 84 yrs old Female presents to ER via Ambulatory with complaints of cp Abdominal Pain. 19:45 The patient presents with abdominal pain right lower quadrant. Onset: The cp symptoms/episode began/occurred today. The symptoms radiate to right back. Associated signs and symptoms: Pertinent negatives: nausea and vomiting, constipation, diarrhea, dysuria, fever. Severity of pain: in the emergency department the pain has improved moderately. Historical: - Allergies: 19:17 Aleve; rr5 19:17 Codeine; rr5 19:17 Morphine; rr5 19:17 Septra; rr5 - Home Meds: 19:17 azelastine 0.05 % ophthalmic drop 1 drop 2 times per day [Active]; Benefiber Sugar Free rr5 (dextrin) Oral twice a day [Active]; Colace 100 mg Oral cap 1 cap once daily [Active]; cranberry 500 mg Oral cap daily [Active]; ezetimibe-simvastatin Oral 1 tab once daily [Active]; magnesium oxide 250 mg Oral tab daily [Active]; omeprazole 40 mg Oral cpDR 1 cap 2 times per day [Active]; Pearls Max Potency daily [Active]; potassium citrate 10 mEq (1,080 mg) Oral TbER 1 tab 3 times per day [Active]; sucralfate 1 gram Oral tab three times a day [Active]; Vitamin D3 1,000 unit Oral cap twice a day [Active]; Vytorin 10-20 Oral once daily [Active]; - PMHx: 19:17 Arthritis; constipation; GERD; rr5 - PSHx: 19:17 Hysterectomy; Cholecystectomy; Appendectomy; Tonsillectomy; rr5 - Immunization history:: Adult Immunizations up to date. - Social history:: Smoking status: unknown Patient/guardian denies using alcohol, street drugs, tobacco products. ROS: 20:00 Abdomen/GI: Positive for abdominal pain, of the right lower quadrant, Negative for cp nausea, vomiting, and diarrhea, constipation, black/tarry stool, rectal bleeding. 20:00 Constitutional: Negative for body aches, chills, fever, poor PO intake. cp 20:00 Cardiovascular: Negative for chest pain. 20:00 Respiratory: Negative for cough, shortness of breath, wheezing. 20:00 Back: Positive for radiated pain. 20:00 : Negative for urinary symptoms. 20:00 Skin: Negative for rash. 20:00 All other systems are negative. Exam: 20:05 Constitutional: The patient appears in no acute distress, alert, awake, cp non-diaphoretic, non-toxic, well developed, well nourished. 20:05 Head/Face: Normocephalic, atraumatic. cp 20:05 Eyes: Periorbital structures: appear normal, Conjunctiva: normal, no exudate, no injection, Sclera: no appreciated abnormality, Lids and lashes: appear normal, bilaterally. 20:05 ENT: External ear(s): are unremarkable, Nose: is normal, Mouth: is normal, Posterior pharynx: is normal, airway is patent. 20:05 Chest/axilla: Inspection: normal. 20:05 Cardiovascular: Rate: normal, Rhythm: regular. 20:05 Respiratory: the patient does not display signs of respiratory distress, Respirations: normal, no use of accessory muscles, labored breathing, is not present, Breath sounds: are clear throughout, no decreased breath sounds, no stridor, no wheezing. 20:05 Abdomen/GI: Inspection: abdomen appears normal, Bowel sounds: active, all quadrants, Palpation: soft, in all quadrants, mild abdominal tenderness, in the right lower quadrant, rebound tenderness, is not appreciated, voluntary guarding, is not appreciated, involuntary guarding, is not appreciated. 20:05 Skin: no rash present. Vital Signs: 19:09 BP 157 / 103; Pulse 68; Resp 19; Temp 98.3; Pulse Ox 99% ; Weight 68.04 kg; Height 5 rr5 ft. 3 in. (160.02 cm); Pain 6/10; 20:15 BP 159 / 62; Pulse 61; Resp 18; Pulse Ox 100% on R/A; wh 22:00 BP 158 / 64; Pulse 64; Resp 18; Pulse Ox 100% on R/A; wh 23:30 BP 162 / 68; Pulse 60; Resp 18; Pulse Ox 100% on R/A; wh 19:09 Body Mass Index 26.57 (68.04 kg, 160.02 cm) rr5 MDM: 19:27 Patient medically screened. 23:11 Data reviewed: vital signs, nurses notes, lab test result(s), radiologic studies, CT cp scan. 23:11 Counseling: I had a detailed discussion with the patient and/or guardian regarding: the cp historical points, exam findings, and any diagnostic results supporting the discharge/admit diagnosis, lab results, radiology results, to return to the emergency department if symptoms worsen or persist or if there are any questions or concerns that arise at home. 03/09 19:27 Order name: Basic Metabolic Panel; Complete Time: 21:41 03/09 21:41 Interpretation: Normal except: GLUC 110; BUN 23; CRE 1.55; GFR 32. 03/09 19:27 Order name: CBC with Diff; Complete Time: 20:00 03/09 20:00 Interpretation: Normal except: RBC 3.81; HGB 11.4; HCT 34.7; EOSINOPHIL % 5.5. 03/09 19:27 Order name: Creatinine for Radiology; Complete Time: 21:41 03/09 19:27 Order name: Hepatic Function; Complete Time: 21:41 03/09 21:41 Interpretation: Normal except: A/G 1.0. 03/09 19:27 Order name: Lipase; Complete Time: 21:41 03/09 21:41 Interpretation: Reviewed. 03/09 21:41 Order name: Urine Microscopic Only 03/09 19:27 Order name: IV Saline Lock; Complete Time: 19:44 03/09 19:27 Order name: Labs collected and sent; Complete Time: 19:44 03/09 20:51 Order name: Abdomen EDMS 03/09 21:41 Order name: Urine Dipstick-Ancillary (obtain specimen); Complete Time: 22:52 03/09 22:53 Order name: Urine Dipstick--Ancillary (enter results) ar5 Administered Medications: 22:15 Drug: NS 0.9% 250 ml Route: IV; Rate: bolus; Site: right antecubital; 23:41 Follow up: Response: No adverse reaction; IV Status: Completed infusion 23:24 Drug: Rocephin 1 grams Route: IV; Rate: calculated rate; Site: right antecubital; 23:41 Follow up: Response: No adverse reaction; IV Status: Completed infusion Disposition: 23:20 Chart complete. 23:53 Co-signature as Attending Physician, Kevin Whitt MD. rn Disposition: 03/09/20 23:12 Discharged to Home. Impression: Lower abdominal pain, unspecified, Urinary tract infection, site not specified. - Condition is Stable. - Discharge Instructions: Abdominal Pain, Adult, Urinary Tract Infection, Adult. - Prescriptions for cefpodoxime 200 mg Oral Tablet - take 1 tablet by ORAL route every 12 hours with food; 20 tablet. - Medication Reconciliation Form, Thank You Letter, Antibiotic Education, Prescription Opioid Use form. - Follow up: Private Physician; When: 2 - 3 days; Reason: Recheck today's complaints. - Problem is new. - Symptoms have improved. Signatures: Dispatcher [employer] EDOK Kevin Whitt MD MD rn Napoleon Kinney PA PA cp Habalo, Winsy Taras Slater RN RN rr5 Corrections: (The following items were deleted from the chart) 20:51 20:04 Abdomen Pelvis W Con+CT.RAD.BRZ ordered. [facility] 23:42 23:12 03/09/2020 23:12 Discharged to Home. Impression: Lower abdominal pain, wh unspecified; Urinary tract infection, site not specified. Condition is Stable. Forms are Medication Reconciliation Form, Thank You Letter, Antibiotic Education, Prescription Opioid Use. Follow up: Private Physician; When: 2 - 3 days; Reason: Recheck today's complaints. Problem is new. Symptoms have improved. cp
--- NOTE | 2020-03-09 23:13 | ER ---
Nurse's Notes [facility] Name: Rupali Yee Age: 84 yrs Sex: Female : 1935 Arrival Date: 03/09/2020 Time: 18:58 Bed 20 Private MD: Lyle Reilly T Diagnosis: Lower abdominal pain, unspecified;Urinary tract infection, site not specified Presentation: 03/09 19:09 Chief complaint: Patient states: my abdomen is hurting started around 4 PM today. I rr5 have like this knot on my right lower abdomen about 2 months now. denies Nausea, vomiting, diarrhea. I have. episodes of constipation. Coronavirus screen: Proceed with normal triage. Ebola Screen: Patient negative for fever greater than or equal to 101.5 degrees Fahrenheit, and additional compatible Ebola Virus Disease symptoms Patient denies exposure to infectious person. Patient denies travel to an Ebola-affected area in the 21 days before illness onset. Initial Sepsis Screen: Does the patient meet any 2 criteria? No. Patient's initial sepsis screen is negative. Does the patient have a suspected source of infection? No. Patient's initial sepsis screen is negative. Risk Assessment: Do you want to hurt yourself or someone else? Patient reports no desire to harm self or others. Onset of symptoms. 19:09 Method Of Arrival: Ambulatory rr5 19:09 Acuity: JANIE 3 rr5 Historical: - Allergies: 19:17 Aleve; rr5 19:17 Codeine; rr5 19:17 Morphine; rr5 19:17 Septra; rr5 - Home Meds: 19:17 azelastine 0.05 % ophthalmic drop 1 drop 2 times per day [Active]; Benefiber Sugar Free rr5 (dextrin) Oral twice a day [Active]; Colace 100 mg Oral cap 1 cap once daily [Active]; cranberry 500 mg Oral cap daily [Active]; ezetimibe-simvastatin Oral 1 tab once daily [Active]; magnesium oxide 250 mg Oral tab daily [Active]; omeprazole 40 mg Oral cpDR 1 cap 2 times per day [Active]; Pearls Max Potency daily [Active]; potassium citrate 10 mEq (1,080 mg) Oral TbER 1 tab 3 times per day [Active]; sucralfate 1 gram Oral tab three times a day [Active]; Vitamin D3 1,000 unit Oral cap twice a day [Active]; Vytorin 10-20 Oral once daily [Active]; - PMHx: 19:17 Arthritis; constipation; GERD; rr5 - PSHx: 19:17 Hysterectomy; Cholecystectomy; Appendectomy; Tonsillectomy; rr5 - Immunization history:: Adult Immunizations up to date. - Social history:: Smoking status: unknown Patient/guardian denies using alcohol, street drugs, tobacco products. Screenin:30 Abuse screen: Denies threats or abuse. Denies injuries from another. Nutritional wh screening: No deficits noted. Tuberculosis screening: No symptoms or risk factors identified. Fall Risk None identified. Assessment: 19:20 General: Appears in no apparent distress. Behavior is calm, cooperative, appropriate wh for age. Pain: Complains of pain in right lower quadrant Pain does not radiate. Pain currently is 4 out of 10 on a pain scale. Quality of pain is described as pressure, Pain began 4 hours ago. Neuro: Level of Consciousness is awake, alert, obeys commands, Oriented to person, place, time, situation, Appropriate for age. Cardiovascular: Heart tones S1 S2. Respiratory: Airway is patent Respiratory effort is even, unlabored, Respiratory pattern is regular, symmetrical, Breath sounds are clear bilaterally. GI: Abdomen is flat, non-distended, Bowel sounds present X 4 quads. Abd is soft X 4 quads. : No signs and/or symptoms were reported regarding the genitourinary system. EENT: No signs and/or symptoms were reported regarding the EENT system. Derm: Skin is intact, is healthy with good turgor, Skin is pink, warm \T\ dry. normal. Musculoskeletal: Circulation, motion, and sensation intact. 20:17 Reassessment: Patient appears in no apparent distress at this time. No changes from previously documented assessment. Patient and/or family updated on plan of care and expected duration. Pain level reassessed. Patient is alert, oriented x 3, equal unlabored respirations, skin warm/dry/pink. 22:02 Reassessment: Patient appears in no apparent distress at this time. No changes from previously documented assessment. Patient and/or family updated on plan of care and expected duration. Pain level reassessed. Patient is alert, oriented x 3, equal unlabored respirations, skin warm/dry/pink. 23:20 Reassessment: Patient appears in no apparent distress at this time. No changes from previously documented assessment. Patient and/or family updated on plan of care and expected duration. Pain level reassessed. Patient is alert, oriented x 3, equal unlabored respirations, skin warm/dry/pink. Patient states feeling better. Vital Signs: 19:09 BP 157 / 103; Pulse 68; Resp 19; Temp 98.3; Pulse Ox 99% ; Weight 68.04 kg; Height 5 rr5 ft. 3 in. (160.02 cm); Pain 6/10; 20:15 BP 159 / 62; Pulse 61; Resp 18; Pulse Ox 100% on R/A; wh 22:00 BP 158 / 64; Pulse 64; Resp 18; Pulse Ox 100% on R/A; wh 23:30 BP 162 / 68; Pulse 60; Resp 18; Pulse Ox 100% on R/A; wh 19:09 Body Mass Index 26.57 (68.04 kg, 160.02 cm) rr5 ED Course: 18:58 Patient arrived in ED. ag5 18:58 Lyle Reilly MD is Private Physician. ag5 19:14 Triage completed. rr5 19:17 Arm band placed on left wrist. rr5 19:24 Napoleon Kinney PA is PHCP. cp 19:24 Kevin Whitt MD is Attending Physician. cp 19:29 Daniel Pino is Primary Nurse. wh 19:30 Patient has correct armband on for positive identification. Placed in gown. Bed in low wh position. Call light in reach. Side rails up X 1. Pulse ox on. NIBP on. 19:30 Inserted saline lock: 20 gauge in right antecubital area, using aseptic technique. Blood collected. 21:13 Abdomen In Process Unspecified. EDMS 23:40 No provider procedures requiring assistance completed. IV discontinued, intact, bleeding controlled, No redness/swelling at site. Administered Medications: 22:15 Drug: NS 0.9% 250 ml Route: IV; Rate: bolus; Site: right antecubital; 23:41 Follow up: Response: No adverse reaction; IV Status: Completed infusion 23:24 Drug: Rocephin 1 grams Route: IV; Rate: calculated rate; Site: right antecubital; 23:41 Follow up: Response: No adverse reaction; IV Status: Completed infusion Outcome: 23:12 Discharge ordered by . trini 23:40 Discharged to home ambulatory. 23:40 Condition: stable 23:40 Discharge instructions given to patient, Instructed on discharge instructions, follow up and referral plans. medication usage, POC Demonstrated understanding of instructions, follow-up care, medications, POC Prescriptions given X 1. 23:42 Patient left the ED. Signatures: Dispatcher [employer] EDMS Napoleon Kinney PA PA cp Habalo, Daniel Taras Slater RN RN rr5 Billy, Grace 5
[2020-03-09] MEDS ORDERED: CEFTRIAXONE/SWI 1gm 1 GM/10 ML SYR ONE (23:25)
[2020-03-09 23:45] LABS: Urine Bacteria >50 /HPF (<20); Urine Culture Reflex Order REFLEXED
[2020-03-09 23:46] LABS: Urine RBC <5 /HPF (NONE SEEN)
[2020-03-09 23:47] LABS: Urine Blood 2+ (NEG); Urine Glucose NEGATIVE (NEG); Urine Protein TRACE (NEG)
[2020-03-10 09:44] VITALS: TEMP 98.3
[2020-03-10 09:45] VITALS: O2SAT 100
[2020-03-10 09:47] VITALS: BP 162/68
--- NOTE | 2020-03-10 14:27 | RAD REPORT ---
EXAM DESCRIPTION: CT ABDOMEN PELVIS WITHOUT IV CONTRAST CLINICAL HISTORY: Lower abdominal pain. COMPARISON: 03/08/2017 TECHNIQUE: CT scan of the abdomen and pelvis was performed without IV contrast. This exam was perfor med according to our departmental dose-optimization program, which includes automated exposure contro l, adjustment of the mA and/or kV according to patient size and/or use of iterative reconstruction te chnique. FINDINGS: The lung bases are clear. No pleural or pericardial effusions. There is a small sliding hi atal hernia. There has been a prior cholecystectomy. The liver, spleen, pancreas, and adrenal glands are unremarka ble. There are simple cysts in both kidneys. There are also tiny nonobstructing stones in the left ki dney. No hydronephrosis is seen. There has been a prior hysterectomy. Normal urinary bladder. There is a moderate amount stool throughout the colon. No evidence of bowel obstruction or inflammati on. The appendix is not seen. No mesenteric free fluid, free air, or adenopathy. There are mild degenerative changes of the spine. 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 The aorta is diffusely atherosclerotic. No abnormal body wall hernia. IMPRESSION: 1. Tiny nonobstructing stones in the left kidney. 2. No bowel obstruction or inflammation. Electronically signed by: Lenin Gonzalez MD 03/09/2020 9:40 PM CDT Due to temporary technical issues with the PACS/Fluency reporting system, reports are being signed by the in house radiologist as a courtesy to ensure prompt reporting. The interpreting radiologist is f ully responsible for the content of the report.
== END 2020-03-09 23:42 | disposition home or self-care (01) ==
LOC: ER 18:53
DX: N39.0 Urinary tract infection, site not specified (principal); Z88.5 Allergy status to narcotic agent; Z88.6 Allergy status to analgesic agent; Z88.8 Allergy status to other drugs, medicaments and biological substances
CPT/HCPCS: 96365; 87088; 85025; 87086; 80048; 36415; 80076; 83690; 74176; 99284; J0696; J7030; 81003; 81015

== ENCOUNTER 2020-10-18 21:04 | Emergency (ER) | payer OTHER ==
--- OUTSIDE RECORDS SUMMARY | 2020-10-18 21:07 | XMS REPORT ---
:1935 Author Organization [facility] Address [address] [facility] [address] [place] [address] Care Team Providers Name Role Phone Aida Vidales Unavailable [phone] PROBLEMS Type Condition ICD9-CM VII86-RG Onset Condition SNOMED Code Notes Code Code Dates Status Problem Kidney stones N20.0 Active 90039843 ALLERGIES Allergen (clinical Drug/Non Drug Reaction Allergy Type Onset Date S tatus drug ingredient) Allergy documented on EMR Unknown Non Drug Allergy Active keflex Unknown Non Drug Allergy Active codiene Unknown Non Drug Allergy Active aleve Unknown Non Drug Allergy Active morphine Unknown Non Drug Allergy Active ENCOUNTERS from 1935 to 2020-10-05 Encounter Location Date Provider Diagnosis [facility] [address] [facility] Oct, Aida Vidales UTI (low er urinary Specialty/Urology [address], tract infection) [place] [address] N39.0 IMMUNIZATIONS No Information SOCIAL HISTORY Tobacco Use: Social History Observation Description Date Details (start date - stop date) Never Smoker Sex Assigned At : Social History Observation Description Sex Assigned At Unknown Tobacco Use/Smoking Question Answer Notes Are you a never smoker REASON FOR REFERRAL No Information VITAL SIGNS Height 63 in Oct, Weight 149.1 lbs Oct, Temperature 98.3 degrees Fahrenheit Oct, BMI 26.41 kg/m2 Oct, Oximetry 97 % Oct, Blood pressure systolic 186 mm Hg Oct, Blood pressure diastolic 82 mm Hg Oct, MEDICATIONS Medication SIG (Take, Route, Notes Start Date End Date Status Frequency, Duration) Benefiber - as directed Orally Activ e Cipro 500 MG 1 tablet Orally every Oct,Oct, Active 12 hrs for 7 days Estradiol 0.1 MG/GM as directed Vaginal Jun, Active twice weekly for 90 days Omeprazole 20 MG 1 capsule 30 minutes Active before morning meal Orally Once a day Nystatin-Triamcinolone 1 application Active 170597-1.1 UNIT/GM Externally Twice a day for 14 days Cipro 500 MG 1 tablet Orally every A ctive 12 hrs Aleve 220 MG 1 tablet with food or A ctive milk as needed Orally every 12 hrs Pearls IC - as directed Orally Activ e Estradiol 0.1 MG/GM as directed Vaginal Active Vagisil 1 % 1 application Active Externally Once a day Estrace 0.1 MG/GM as directed Vaginal Active Colace 100 MG 1 capsule as needed Ac tive Orally Once a day Estradiol 0.1 MG/GM 1/2 gm Vaginal twice Aug, Active weekly for 90 days Prevagen 10 MG as directed Orally Ac tive PROCEDURES No Information RESULTS No Results REASON FOR VISIT uti, nurse visit MEDICAL (GENERAL) HISTORY Type Description Date Medical History esophageal reflux Medical History gallstones Medical History hypertension Medical History kidney stones Medical History hiatal hernia Medical History osteoarthritis Medical History nephrolithiasis Surgical History ROSHNI/BSO Surgical History Colpopexy Cystocele Repair with Uphold/T VT-O sling Surgical History appendectomy Surgical History Cholecystectomy Surgical History left knee replacement Surgical History Cataract removal-rodney Surgical History tonsilectomy Hospitalization History No Hospitalization history informati on Goals Section No Information Health Concerns No Information MEDICAL EQUIPMENT No Information MENTAL STATUS No Information FUNCTIONAL STATUS No Information ASSESSMENTS Encounter Date Diagnosis Assessment Notes Treatment Notes Treatm ent Clinical Notes Oct, UTI (lower urinary tract infection) (ICD-10 - N39.0) PLAN OF TREATMENT Medication Medication Name Sig Start Date Stop Date Cipro 500 MG 1 tablet Orally every 12 hrs for 7 days Oct, Oct, Treatment Notes Test Name Order Date URINALYSIS, COMPLETE W/REFLEX TO CULTURE 2020-10-05 URINALYSIS AUTO W/O SCOPE (22057) 2020-10-05 Next Appt Details 2 Weeks Reason:uti Provider Name:Aida Vidales, 10:30:00 AM, [address] [place] [address], [place], [address], Provider Name:Aida Vidales, 10:15:00 AM, [address] [place] [address], [facility], [place], [address], Follow Up:2 Weeksuti Insurance Providers Payer Name Payer Address Payer Insured Patient Coverage Cover age End Phone Name Relationship to Start Date [employer] e Insured HUMANA [address] [address] [phone] Joselito, lary [address] [phone]
--- OUTSIDE RECORDS SUMMARY | 2020-10-18 21:07 | XMS REPORT ---
:1935 Author Organization [facility] Address [address] [facility] [address] [place] [address] Care Team Providers Name Role Phone Aida Vidales Unavailable [phone] PROBLEMS Type Condition ICD9-CM UGL90-LO Onset Condition SNOMED Code Notes Code Code Dates Status Problem Kidney stones N20.0 Active 80162837 ALLERGIES Allergen (clinical Drug/Non Drug Reaction Allergy Type Onset Date S tatus drug ingredient) Allergy documented on EMR Unknown Non Drug Allergy Active keflex Unknown Non Drug Allergy Active codiene Unknown Non Drug Allergy Active aleve Unknown Non Drug Allergy Active morphine Unknown Non Drug Allergy Active ENCOUNTERS from 1935 to 2020-08-17 Encounter Location Date Provider Diagnosis [place] [facility] 200 Aug, Aida Vidales Specialty/[place] [address] IMMUNIZATIONS No Information SOCIAL HISTORY Tobacco Use: Social History Observation Description Date Details (start date - stop date) Never Smoker Sex Assigned At : Social History Observation Description Sex Assigned At Unknown Tobacco Use/Smoking Question Answer Notes Are you a never smoker REASON FOR REFERRAL No Information VITAL SIGNS No information MEDICATIONS Medication SIG (Take, Route, Start Date End Date Status Frequency, Duration) Benefiber - as directed Orally Active Pearls IC - as directed Orally Active Estradiol 0.1 MG/GM 1/2 gm Vaginal twice Aug, Active weekly for 90 days Amoxicillin-Pot 1 tablet Orally BID for 5 Aug, Aug, Active Clavulanate 500-125 MG days Estradiol 0.1 MG/GM as directed Vaginal twice Jun, Active weekly for 90 days Cipro 500 MG 1 tablet Orally every 12 Act prabha hrs Aleve 220 MG 1 tablet with food or milk A ctive as needed Orally every 12 hrs Colace 100 MG 1 capsule as needed Orally Active Once a day Estradiol 0.1 MG/GM as directed Vaginal A ctive Omeprazole 20 MG 1 capsule 30 minutes Act prabha before morning meal Orally Once a day Estrace 0.1 MG/GM as directed Vaginal Act prabha Nystatin-Triamcinolone 1 application Externally Active 284692-3.1 UNIT/GM Twice a day for 14 days Vagisil 1 % 1 application Externally Act prabha Once a day Prevagen 10 MG as directed Orally Active PROCEDURES No Information RESULTS No Results REASON FOR VISIT No Information MEDICAL (GENERAL) HISTORY Type Description Date Medical [...] No Information FUNCTIONAL STATUS No Information ASSESSMENTS No Information PLAN OF TREATMENT Medication Medication Name Sig Start Date Stop Date Amoxicillin-Pot Clavulanate 1 tablet Orally BID for 5 Aug, Aug, 500-125 MG days Estradiol 0.1 MG/GM 1/2 gm Vaginal twice weekly Aug, for 90 days Next Appt Details Provider Name:Aida Bessie Vidales, 10:30:00 AM, [address] [place] [address], [address], Provider Name:Aida Bessie Vidales, 10:15:00 AM, [address] [place] [address], [address], [address], Insurance Providers Payer Name Payer Address Payer Insured Patient Coverage Cover age End Phone Name Relationship to Start Date Iglesia e Insured HUMANA [address] [address] [phone] Yee, lary [address] [address]
--- OUTSIDE RECORDS SUMMARY | 2020-10-18 21:07 | XMS REPORT ---
:1935 Author Organization [facility] Address [address] [facility] [address] [place] [address] Care Team Providers Name Role Phone Aida Vidales Unavailable [phone] PROBLEMS Type Condition ICD9-CM [id number] Onset Condition SNOMED Code Notes Code Code Dates Status Problem Kidney stones N20.0 Active 05632271 ALLERGIES Allergen (clinical Drug/Non Drug Reaction Allergy Type Onset Date S tatus drug ingredient) Allergy documented on EMR Unknown Non Drug Allergy Active keflex Unknown Non Drug Allergy Active codiene Unknown Non Drug Allergy Active aleve Unknown Non Drug Allergy Active morphine Unknown Non Drug Allergy Active ENCOUNTERS from 1935 to 2020-08-20 Encounter Location Date Provider Diagnosis [facility] [facility] Aug, Aida Vidales Kidney s tones N20.0 Specialty/Urology [address], ; UTI ([facility] [address] urinary tract infection) N39. 0 and RLQ abdomin al pain R10.31 IMMUNIZATIONS No Information SOCIAL HISTORY Tobacco Use: Social History Observation Description Date Details (start date - stop date) Never Smoker Sex Assigned At : Social History Observation Description Sex Assigned At Unknown Tobacco Use/Smoking Question Answer Notes Are you a never smoker REASON FOR REFERRAL No Information VITAL SIGNS Height 63 in Aug, Weight 149.1 lbs Aug, Temperature 98.7 degrees Fahrenheit Aug, BMI 26.41 kg/m2 Aug, Oximetry 89 % Aug, Blood pressure systolic 184 mm Hg Aug, Blood pressure diastolic 84 mm Hg Aug, MEDICATIONS Medication SIG (Take, Route, Start Date [...] Act prabha Nystatin-Triamcinolone 1 application Externally Active 491169-1.1 UNIT/GM Twice a day for 14 days Vagisil 1 % 1 application Externally Act prabha Once a day Prevagen 10 MG as directed Orally Active PROCEDURES No Information RESULTS No Results REASON FOR VISIT uti MEDICAL (GENERAL) HISTORY Type Description Date Medical [...] STATUS No Information ASSESSMENTS Encounter Date Diagnosis Notes Aug, RLQ abdominal pain (ICD-10 - R10.31) Aug, UTI (lower urinary tract infection) (ICD -10 - N39.0) Aug, Kidney stones (ICD-10 - N20.0) PLAN OF TREATMENT Medication Medication Name Sig Start Date Stop Date Amoxicillin-Pot Clavulanate 1 tablet Orally BID for 5 Aug,Aug, 500-125 MG days Estradiol 0.1 MG/GM 1/2 gm Vaginal twice weekly Aug, for 90 days Treatment Notes Assessment Notes Clinical Notes RLQ abdominal pain Reviewed CT, pain is RLQ attributed to hiatal hernia, stones are on left, tiny nonobstructing, 03/2020Pain is now resolvedNo uti and n o RBC's in urine last visitMay consider anticholenergic to r elievcathy spasm. Continue stool softener.Continue va ginal cream, 2-3x a weekurine reflex,POCT +LE, sta rt abxnystatin/trim. for yeast /irritation on labia l area, 2x a day for 2 weeks, worked well, ok to stop now F/U in 3 mol Treatment Notes Test Name Order Date URINALYSIS AUTO W/O SCOPE ([id number]) 2020-08-20 UMIC with Reflex to Urine Culture 2020-08-20 Next Appt Details 3 Months Reason:urine Provider Name:Aida Vidales, 10:30:00 AM, [address] [place] [address], [address], [address], Provider Name:Aida Bessie Vidales, 10:15:00 AM, [address] [place] [address], [place] [address], [place], [address], Follow Up:3 Monthsurine Insurance Providers Payer Name Payer Address Payer Insured Patient Coverage Cover age End Phone Name Relationship to Start Date Iglesia e Insured [employer] [address] [address] [phone]ee [address] [address]
--- OUTSIDE RECORDS SUMMARY | 2020-10-18 21:07 | XMS REPORT ---
:1935 Author Organization [facility] Address [address] [facility] [address] [place] [address] Care Team Providers Name Role Phone Aida Vidales Unavailable [phone] PROBLEMS Type Condition ICD9-CM LQT40-DP Onset Condition SNOMED Code Notes Code Code Dates Status Problem Kidney stones N20.0 Active 79784225 ALLERGIES Allergen (clinical Drug/Non Drug Reaction Allergy Type Onset Date S tatus drug ingredient) Allergy documented on EMR Unknown Non Drug Allergy Active keflex Unknown Non Drug Allergy Active codiene Unknown Non Drug Allergy Active aleve Unknown Non Drug Allergy Active morphine Unknown Non Drug Allergy Active ENCOUNTERS from 1935 to 2020-10-16 Encounter Location Date Provider Diagnosis [facility] [facility] Oct, Aida Vidales UTI (low er urinary Specialty/Urology [address], tract infection) [place] [address] N39.0 ; Kidney stones N20.0 an d RLQ abdominal p ain R10.31 IMMUNIZATIONS No Information SOCIAL HISTORY Tobacco Use: Social History Observation Description Date Details (start date - stop date) Never Smoker Sex Assigned At : Social History Observation Description Sex Assigned At Unknown Tobacco Use/Smoking Question Answer Notes Are you a never smoker REASON FOR REFERRAL No Information VITAL SIGNS Height 63 in Oct, Weight 149.1 lbs Oct, Temperature 96.2 degrees Fahrenheit Oct, BMI 26.41 kg/m2 Oct, Oximetry 94 % Oct, Blood pressure systolic 174 mm Hg Oct, Blood pressure diastolic 82 mm Hg Oct, MEDICATIONS Medication SIG (Take, Route, Notes Start Date End Date Status Frequency, Duration) Estradiol 0.1 MG/GM as directed Vaginal twice Jun, Active weekly for 90 days Vagisil 1 % 1 application Externally Active Once a day Estradiol 0.1 MG/GM 1/2 gm Vaginal twice Oct, Active weekly for 90 days Prevagen 10 MG as directed Orally Ac tive Estrace 0.1 MG/GM as directed Vaginal Active Pearls IC - as directed Orally Activ e Estradiol 0.1 MG/GM as directed Vaginal Active Omeprazole 20 MG 1 capsule 30 minutes Active before morning meal Orally Once a day Colace 100 MG 1 capsule as needed Ac tive Orally Once a day Aleve 220 MG 1 tablet with food or A ctive milk as needed Orally every 12 hrs Estradiol 0.1 MG/GM 1/2 gm Vaginal twice Aug, Active weekly for 90 days Cipro 500 MG 1 tablet Orally every 12 Active hrs Benefiber - as directed Orally Activ e Nystatin-Triamcinolone 1 application Externally Active 138084-1.1 UNIT/GM Twice a day for 14 days PROCEDURES No Information RESULTS No Results REASON FOR VISIT f/u uti MEDICAL (GENERAL) HISTORY Type Description Date [...] (lower urinary tract infection) (ICD-10 - N39.0) Oct, Kidney stones (ICD-10 - N20.0) Oct, RLQ abdominal Reviewed CT, p ain is pain (ICD-10 - RLQ attribut ed to R10.31) hiatal hernia, stones are on left, ti ny nonobstructing, 03/2020 Pain is now res olved No uti and no R BC's in urine last v isit May consider anticholenergic to relieve spasm. Continue stool softener. Continue vagina l cream, 2-3x a w [place], restart urine reflex,P OCT +LE, finished C ipro 10/12/2020 F/U in 3 mo. pr n for urine PLAN OF TREATMENT Medication Medication Name Sig Start Date Stop Date Estradiol 0.1 MG/GM 1/2 gm Vaginal twice weekly for 90 days 11 D ec2019 Treatment Notes Assessment Notes Clinical Notes RLQ abdominal pain Reviewed CT, pain is RLQ attributed to hiatal hernia, stones are on left, tiny nonobstructing, 03/2020Pain is now resolvedNo uti and n o RBC's in urine last visitMay consider anticholenergic to r gal spasm. Continue stool softener.Continue va ginal cream, 2-3x a week, restarturine reflex,POCT +LE, fin ished Cipro 10/12/2020F/U in 3 mo. prn for urine Treatment Notes Test Name Order Date URINALYSIS, COMPLETE W/REFLEX TO CULTURE 2020-10-16 URINALYSIS AUTO W/O SCOPE ([id number]) 2020-10-16 Next Appt Details 3 Months Reason:urine Provider Name:Aida Vidales, 10:15:00 AM, [address] [place] [address], [place] [address], [place], [address], Provider Name:Aida Vidales, 02:00:00 PM, [address] [place] [address], [facility] [address], [place], [address], Follow Up:3 Monthsurine Insurance Providers Payer Name Payer Address Payer Insured Patient Coverage Cover age End Phone Name Relationship to Start Date Iglesia e Insured [employer] [address] [address] [phone] Joselito, self [address] [address]
--- OUTSIDE RECORDS SUMMARY | 2020-10-18 21:07 | XMS REPORT | Continuity of Care Document ---
:1935 Author Organization [facility] t Address [address] [place] [address] Care Team Providers Name Role Phone Chiqui MICHEL, Gene Attending Clinician Problems This patient has no known problems. Allergies, Adverse Reactions, Alerts Allergy Allergy Status Severity Reaction(s) Onset Inactive Treating Comm ents Source Name Type Date Date Clinician septra Adverse Active Info Not [facility] Reaction Available [facility] ent Clinics keflex Adverse Active Info Not [facility] Reaction Available [facility] ent [facility] aleve Adverse Active Info Not [facility] Reaction Available [facility] codiene Adverse Active Info Not [facility] Reaction Available [facility] morphine Adverse Active Info Not [facility] Reaction Available [facility] ent [facility] Medications Ordered Filled Start Stop Current Ordering Indication Dosage Frequency Signature Comments Components Source Medication Medication Date Date Medication? Clinician (SIG) Name Name Cipro Cipro 2019-0 2020- No Aida 1 tablet [facility] :00 [facility] ent [facility] Procedures This patient has no known procedures. Encounters Start End Encounter Admission Attending Care Care Encounter Source Date/Time Date/Time Type Type Clinicians Facility Department ID 2020-10-13 2020-10-13 Outpatient [facility] [id number] [facility] ent Clinics 2020-10-05 2020-10-05 [facility] [id number] [facility] 2020-10-02 2020-10-02 [facility] [id number] 00:00:00 00:00:00 [facility] [id number] [place] [id number] Professio [phone] nal [address] [place] [address] 2020-08-17 2020-08-17 [facility] [id number] [facility] 2020-08-17 2020-08-17 [facility] [id number] [facility] 2020-08-15 2020-08-15 [facility] [id number] 00:00:00 00:00:00 [facility] [id number] [place] [id number] Professio [phone] nal 2 [facility] 2020-08-03 2020-08-03 [facility] [id number] [facility] 2020-07-12 2020-07-12 [facility] [id number] [facility] 12:41:00 12:41:00 t Specialty/U Tanya kes - Specialty rology [facility] /Urology Clinic l Clinic Outpati ent Clinics 2020-07-03 2020-07-03 [facility] [id number] [address] 10:30:00 10:30:00 t Specialty/U Tanya kes - Specialty rology Memori a /Urology Clinic l Clinic Outpati ent Clinics 2020-06-19 2020-06-19 [facility] [id number] [address] 15:14:00 15:14:00 t Specialty/U Tanya kes - Specialty rology [facility] /Urology Clinic l Clinic Outpati ent Clinics 2020-06-19 2020-06-19 [facility] [id number] 13:15:00 13:15:00 t Specialty/U Tanya kes - Specialty rology [facility] 2020-06-14 2020-06-14 Refill Chiqui, [facility] [id number] 00:00:00 00:00:00 Bertram Rascon [place] [id number] [place] [id number] Professio [phone] nal 2 [facility] 2020-04-14 2020-04-14 [facility] [id number] 10:00:00 10:00:00 t Specialty/U Tanya kes - Specialty rology [facility] a /Urology Clinic l [facility] 2020-04-14 2020-04-14 Refill Chiqui, [facility] [id number] 00:00:00 00:00:00 Bertram Armstrong [id number] [place] [id number] Professio [phone] nal [address] [place] [address] 2020-04-12 2020-04-12 Refill Chiqui, [facility] [id number] 00:00:00 00:00:00 Bertram Armstrong [id number] [place] [id number] Professio [phone] [address] 2020-04-12 2020-04-12 Refill Chiqui, [facility] [id number] 00:00:00 00:00:00 Bertram Armstrong [id number] [place] [id number] Professio [phone] nal [address] [place] [address] 2020-03-28 2020-03-28 Refnena Florian, [facility] [id number] 00:00:00 00:00:00 Bertram Armstrong [id number] [place] [id number] Professio [phone] nal [address] [place] [address] 2020-03-15 2020-03-15 [facility] [id number] 09:30:00 09:30:00 t Specialty/U Tanya kes - Specialty rology Memori a /Urology Clinic l Clinic Outpati ent Clinics 2020-01-24 2020-01-24 Telephone [facility] [id number] 00:00:00 00:00:00 Bertram Armstrong [id number] [place] [id number] [facility] [phone] nal 092 Building 2020-01-10 2020-01-10 [facility] [id number] 07:56:00 23:59:00 Encounter Bertram Armstrong [id number] [place] [id number] [place] [phone] [id number] 2019-12-27 2019-12-27 Office [facility] [id number] 10:58:45 13:26:08 Visit Bertram Armstrong [id number] [place] [id number] [facility] [phone] [facility] Results This patient has no known results.
--- OUTSIDE RECORDS SUMMARY | 2020-10-18 21:07 | XMS REPORT ---
:1935 Author Organization [facility] Address [address] [place], [address] [place] [address] Care Team Providers Name Role Phone Aida Vidales Unavailable [phone] PROBLEMS Type Condition ICD9-CM [id number] Onset Condition SNOMED Code Notes Code Code Dates Status Problem Kidney stones N20.0 Active 41925868 ALLERGIES Allergen (clinical Drug/Non Drug Reaction Allergy Type Onset Date S tatus drug ingredient) Allergy documented on EMR codiene Unknown Non Drug Allergy Active aleve Unknown Non Drug Allergy Active septra Unknown Non Drug Allergy Active morphine Unknown Non Drug Allergy Active keflex Unknown Non Drug Allergy Active ENCOUNTERS from 1935 to 2020-08-03 Encounter Location Date Provider Diagnosis [facility] [address] Aug, Aida Vidales UTI (lowe r urinary Specialty/Urology [address] [place], tract infection) [place] [address] N39.0 ; Kidney stones N20.0 an d [...] in Aug, Weight 149.1 lbs Aug, Temperature 97.1 degrees Fahrenheit Aug, BMI 26.41 kg/m2 Aug, Oximetry 98 % Aug, Blood pressure systolic 164 mm Hg Aug, Blood pressure diastolic 82 mm Hg Aug, MEDICATIONS Medication SIG (Take, Route, Start Date End Date Status Frequency, Duration) Nystatin-Triamcinolone 1 application Externally Active 815613-2.1 UNIT/GM Twice a day for 14 days Benefiber - as directed Orally Active Estradiol 0.1 MG/GM as directed Vaginal twice Jun, Active weekly for 90 days Omeprazole 20 MG 1 capsule 30 minutes before Active morning meal Orally Once a day Vagisil 1 % 1 application Externally Act prabha Once a day Colace 100 MG 1 capsule as needed Orally Active Once a day Pearls IC - as directed Orally Active Estradiol 0.1 MG/GM as directed Vaginal A ctive Estrace 0.1 MG/GM as directed Vaginal Act prabha Prevagen 10 MG as directed Orally Active Cipro 500 MG 1 tablet Orally every 12 Act prabha hrs Cipro 250 MG 1 tablet Orally every 12 Aug, Aug, Act prabha hrs for 5 days Aleve 220 MG 1 tablet with food or milk A ctive as needed Orally every 12 hrs PROCEDURES No Information RESULTS No Results REASON [...] RLQ abdominal pain (ICD-10 - R10.31) Aug, Kidney stones (ICD-10 - N20.0) Aug, UTI (lower urinary tract infection) (ICD -10 - N39.0) PLAN OF TREATMENT Medication Medication Name Sig Start Date Stop Date Nystatin-Triamcinolone 1 application Externally Twice 692964-9.1 UNIT/GM a day for 14 days Cipro 250 MG 1 tablet Orally every 12 hrs Aug, 6 O 2019 for 5 days Treatment Notes Assessment Notes Clinical Notes RLQ abdominal pain Reviewed CT, pain is RLQ attributed to hiatal hernia, stones are on left, tiny nonobstructing, 03/2020Pain is now resolvedNo uti and n o RBC's in urine last visitMay consider anticholenergic to r elieve spasm. Continue stool softener.Continue va ginal cream, 2-3x a weekurine reflex,POCT +LE, sta rt abxtrial of nystatin/trim. for yeast /irritation on labia l area, 2x a day for 2 weeksF/U in 2 weeks, check labia a nd urine Treatment Notes Test Name Order Date URINALYSIS AUTO W/O SCOPE ([id number]) 2020-08-03 UMIC with Reflex to Urine Culture 2020-08-03 Next Appt Details 2 Weeks Reason:urine Provider Name:Aida Vidales, 09:30:00 AM, [address], [address], [place], [address], Provider Name:Aida Vidales, 10:30:00 AM, [address], [address], [place], [address], Follow Up:2 Weeksurine Insurance Providers Payer Name Payer Address Payer Insured Patient Coverage Cover age End Phone Name Relationship to Start Date Iglesia e Insured [employer] [address] [address] [phone] Joselito, self [address] [address]
--- OUTSIDE RECORDS SUMMARY | 2020-10-18 21:07 | XMS REPORT | Summary of Care ---
:[address] [facility] Address [address] [place] [address] Care Team Providers Name Role Phone Lyle Reillyton Primary Care Provider Reason for Visit Reason Comments Refill Request Encounter Details Date Type Department Care Team Description 08/15/2020 Refill [facility] Bertram Florian MD Refill Request Neurology-[address] [place] [address] [address] [place] [address] [phone] Allergies No Known Allergiesdocumented as of this encounter (statuses as of 08/15/2020) Medications Medication Sig Dispensed Refills Start Date [...] Units by D3) 1,000 unit (25 mouth daily. mcg) tablet BENEFIBER, WHEAT Take by 0 Act prabha DEXTRIN, ORAL mouth. naproxen sodium Take by 0 Acti ve (ALEVE ORAL) mouth. PYRIDOSTIGMINE 60 mg Take 1/2 15 tablet 2 08/15/2020 Active tabletIndications: (one-half) Myasthenia gravis tablet by without exacerbation mouth twice daily PYRIDOSTIGMINE 60 mg Take 1/2 15 tablet 3 06/16/2020 08/15/20 20 Discontinued tabletIndications: (one-half) Myasthenia gravis tablet by without exacerbation mouth twice daily documented as of this encounter (statuses as of 08/15/2020) Active Problems No known active problemsdocumented as of this encounter (statuses as of 08/15/2020) Social History Tobacco Use Types Packs/Day Years [...] Assigned at Date Recorded Not on file documented as of this encounter Last Filed Vital Signs Not on filedocumented in this encounter Miscellaneous Notes Telephone Encounter - Oumou Yates LVN - 08/15/2020 10:14 AM CDT Received erx refill request for: Requested Prescriptions Pending Prescriptions Disp Refills PYRIDOSTIGMINE 60 mg tablet [Pharmacy Med Name: Pyridostigmine [place] 60 MG Oral Tablet] 15 tablet 0 Sig: Take 1/2 (one-half) tablet by mouth twice daily Last filled: PYRIDOSTIGMINE 60 mg tablet 15 tablet 3 06/16/2020 Follow up scheduled for : Not scheduled yet Last office visit: 12-27-19 Refilled approval sent to: Pharmacy: [facility] [address] [place] [id number] Refilled per Guidelines' documented in this encounter Plan of Treatment Health Maintenance Due Date Last Done Comments DTaP,Tdap,and Td Vaccines (1 - Tdap) 1954 Zoster Recombinant Vaccine (SHINGRIX) (1 of 2) 1985 Medicare Wellness Visit 2000 Osteoporosis Screening 2000 PNEUMOCOCCAL VACCINES 65+ (1 of 1 - PPSV23) 2000 INFLUENZA VACCINE (#1) 2020 Depression Screening 12/27/2020 12/27/2019 documented as of this encounter Results Not on filedocumented in this encounter Visit Diagnoses Diagnosis Myasthenia gravis without exacerbation documented in this encounter Insurance Payer Benefit Plan / Subscriber ID Effective Dates Phone Addre ss Type Group HUMANA - HUMANA [id number] 2019-Presen Medi care Adv MANAGED MEDICARE t FFS MEDICARE documented as of this encounter
--- OUTSIDE RECORDS SUMMARY | 2020-10-18 21:07 | XMS REPORT | Summary of Care ---
:1935 Author Organization [facility] Address [address] [place] [id number] Care Team Providers Name Role Phone Lyle Reillyton Primary Care Provider Reason for Visit Reason Comments Refill Request Encounter Details Date Type Department Care Team Description 10/02/2020 Refill [facility] Bertram Florian MD Refill Request Neurology-[address] [place] [id number] [address] [place] [address] [phone] Allergies No Known Allergiesdocumented as of this encounter (statuses as of 10/03/2020) Medications Medication Sig Dispensed Refills Start Date [...] ORAL) mouth. PYRIDOSTIGMINE 60 mg Take 1/2 30 tablet 2 10/03/2020 Active tabletIndications: (one-half) Myasthenia gravis tablet by without exacerbation mouth twice daily PYRIDOSTIGMINE 60 mg Take 1/2 15 tablet 2 08/15/2020 10/03/20 20 Discontinued tabletIndications: (one-half) Myasthenia gravis tablet by without exacerbation mouth twice daily documented as of this encounter (statuses as of 10/03/2020) Active Problems No known active problemsdocumented as of this encounter (statuses as of 10/03/2020) Social History Tobacco Use Types Packs/Day Years [...] Telephone Encounter - Oumou Yates LVN - 10/03/2020 4:05 PM CST Received erx refill request for: Requested Prescriptions Pending Prescriptions Disp Refills PYRIDOSTIGMINE 60 mg tablet [Pharmacy Med Name: Pyridostigmine [place] 60 MG Oral Tablet] 15 tablet 0 Sig: Take 1/2 (one-half) tablet by mouth twice daily Last filled: PYRIDOSTIGMINE 60 mg tablet 15 tablet 2 08/15/2020 Follow up scheduled for : not scheduled yet Last office visit: 12-27-19 Refilled approval sent to: Pharmacy: [facility] [address] [place] [id number] Refilled per Guidelines TAIN CLERK documented in this encounter Plan of Treatment [...] Addre ss Type Group HUMANA - HUMANA [id number] 2019-[facility] MANAGED MEDICARE t FFS MEDICARE documented as of this encounter
[2020-10-18 22:44] LABS: Urine Blood 3+ (NEG); Urine Glucose NEGATIVE (NEG); Urine Protein 2+ (NEG); Urine pH 8.5 (5.0-7.0)
[2020-10-18 22:48] LABS: Urine Bacteria <20 /HPF (<20); Urine RBC TNTC /HPF (NONE SEEN); Urine Urothelial Cells <5 /HPF (NONE SEEN)
--- NOTE | 2020-10-18 22:50 | ER ---
Nurse's Notes [facility] Name: Rupali Yee Age: 85 yrs Sex: Female : 1935 Arrival Date: 10/18/2020 Time: 21:05 Bed 17 Private MD: Lyle Reilly T Diagnosis: Urinary tract infection, site not specified Presentation: 10/18 21:07 Note pt daughter on the phone at this time, reports she believes that the patient sg withholds all the information, she has been taking metamucil really regularly and we we think that she just over did it and took too much and that's why shes in and out of the hospital, also would like to Marcus [phone]. 21:18 Chief complaint: Patient states: she thinks she has a bladder infection, reports em burning with urination and sometimes all the time, also reports pelvic pain, reports she recently was diagnosed with UTI but was given medicine, denies fever N/V. Coronavirus screen: Client denies travel out of the [place] in the last 14 days. Ebola Screen: Patient negative for fever greater than or equal to 101.5 degrees Fahrenheit, and additional compatible Ebola Virus Disease symptoms Patient denies exposure to infectious person. Patient denies travel to an Ebola-affected area in the 21 days before illness onset. No symptoms or risks identified at this time. Initial Sepsis Screen: Does the patient meet any 2 criteria? No. Patient's initial sepsis screen is negative. Does the patient have a suspected source of infection? Yes: Dysuria/Frequency/Urgency/UTI. Risk Assessment: Do you want to hurt yourself or someone else? Patient reports no desire to harm self or others. Onset of symptoms was October 17, 2020. 21:18 Method Of Arrival: Ambulatory em 21:18 Acuity: JANIE 4 em Historical: - Allergies: 21:21 Aleve; em 21:21 Codeine; em 21:21 Morphine; em 21:21 Septra; em - PMHx: 21:21 Arthritis; constipation; GERD; Hypertension; em - PSHx: 21:21 Hysterectomy; Cholecystectomy; Appendectomy; Tonsillectomy; em - Immunization history:: Adult Immunizations up to date. - Social history:: Smoking status: Patient denies any tobacco usage or history of. Screenin:45 Abuse screen: Denies threats or abuse. Denies injuries from another. Nutritional aj1 screening: No deficits noted. Tuberculosis screening: No symptoms or risk factors identified. 23:16 Fall Risk None identified. aj1 Assessment: 21:45 General: Appears in no apparent distress. uncomfortable, Behavior is calm, cooperative, aj1 appropriate for age. Pain: Complains of pain in suprapubic area. Neuro: Level of Consciousness is awake, alert, obeys commands, Oriented to person, place, time, situation. Cardiovascular: Patient's skin is warm and dry. Respiratory: Airway is patent Respiratory effort is even, unlabored, Respiratory pattern is regular, symmetrical. GI: Abdomen is non-distended. : Reports burning with urination, urinary frequency. EENT: No signs and/or symptoms were reported regarding the EENT system. Derm: No signs and/or symptoms reported regarding the dermatologic system. Skin is pink, warm \T\ dry. normal. Musculoskeletal: No signs and/or symptoms reported regarding the musculoskeletal system. Circulation, motion, and sensation intact. 22:12 Reassessment: Patient appears in no apparent distress at this time. No changes from aj1 previously documented assessment. Patient and/or family updated on plan of care and expected duration. Pain level reassessed. Patient is alert, oriented x 3, equal unlabored respirations, skin warm/dry/pink. 23:16 Reassessment: Patient appears in no apparent distress at this time. No changes from aj1 previously documented assessment. Patient and/or family updated on plan of care and expected duration. Pain level reassessed. Patient is alert, oriented x 3, equal unlabored respirations, skin warm/dry/pink. Vital Signs: 21:18 BP 176 / 75; Pulse 71; Resp 18; Temp 98.3; Pulse Ox 97% on R/A; Weight 64.41 kg; Height em 5 ft. 3 in. (160.02 cm); Pain 6/10; 22:12 BP 161 / 67; Pulse 67; Resp 18; Pulse Ox 98% on R/A; aj1 21:18 Body Mass Index 25.15 (64.41 kg, 160.02 cm) em ED Course: 21:05 Patient arrived in ED. am2 21:05 Lyle Reilly MD is Private Physician. am2 21:11 Samantha Block [facility]-C [facility]. kb 21:11 Buck Richey MD is Attending Physician. kb 21:15 Cherry Whaley, RN is Primary Nurse. aj1 21:20 Triage completed. em 21:21 Arm band placed on. em 21:45 Patient has correct armband on for positive identification. Bed in low position. Call aj1 light in reach. Side rails up X 1. 21:45 No provider procedures requiring assistance completed. aj1 23:17 Patient did not have IV access during this emergency room visit. aj1 Administered Medications: 23:10 Drug: Pyridium 100 mg Route: PO; aj1 23:15 Follow up: Response: No adverse reaction aj1 23:10 Drug: Augmentin 875 mg Route: PO; aj1 23:15 Follow up: Response: No adverse reaction aj1 23:10 Drug: traMADol 25 mg Route: PO; aj1 23:10 Follow up: Response: No adverse reaction aj1 Outcome: 22:50 Discharge ordered by MD. kb 23:17 Discharged to home ambulatory, with family. aj1 23:17 Condition: good 23:17 Discharge instructions given to patient, Instructed on discharge instructions, follow up and referral plans. medication usage, Demonstrated understanding of instructions, follow-up care, medications, Prescriptions given X 2. 23:17 Patient left the ED. aj1 Signatures: Samantha Block FNP-C SENIOR QA TESTER-Ckb Cherry Whaley, RN RN aj1 Garry Godfrey RN RN sg Munoz, Edgar, RN RN Tena Esparza am2 Corrections: (The following items were deleted from the chart) 21:10 21:07 Note pt daughter on the phone at this time, reports she believes that the patient sg withholds all the information, she has been taking metamucil really regularly and we we think that she just over did it and took too much and that's why shes in and out of the hospital sg
--- NOTE | 2020-10-18 22:50 | EDPHYS ---
Physician Documentation [facility] Name: Rupali Yee Age: 85 yrs Sex: Female : 1935 Arrival Date: 10/18/2020 Time: 21:05 Bed 17 Private MD: Lyle Reilly T ED Physician Buck Richey HPI: 10/18 21:32 This 85 yrs old Female presents to ER via Ambulatory with complaints of Pain kb With Urination, Nausea. 21:32 The patient presents with urinary symptoms, dysuria, frequency. Onset: The kb symptoms/episode began/occurred last night. Modifying factors: The symptoms are alleviated by nothing, the symptoms are aggravated by urinating. Associated signs and symptoms: Pertinent positives: dysuria, urinary frequency. Severity of symptoms: At their worst the symptoms were moderate, in the emergency department the symptoms are unchanged. The patient has experienced similar episodes in the past, a few times. The patient has not recently seen a physician. 21:34 PT states "I think I have a bladder infection. I've had them before and it felt like kb this." Pt reports suprapubic pain, urinary frequency, small amount. dysuria. Denies fever.. Historical: - Allergies: 21:21 Aleve; em 21:21 Codeine; em 21:21 Morphine; em 21:21 Septra; em - PMHx: 21:21 Arthritis; constipation; GERD; Hypertension; em - PSHx: 21:21 Hysterectomy; Cholecystectomy; Appendectomy; Tonsillectomy; em - Immunization history:: Adult Immunizations up to date. - Social history:: Smoking status: Patient denies any tobacco usage or history of. ROS: 21:31 Constitutional: Negative for fever, chills, and weight loss, Cardiovascular: Negative kb for chest pain, palpitations, and edema, Respiratory: Negative for shortness of breath, cough, wheezing, and pleuritic chest pain, MS/Extremity: Negative for injury and deformity, Skin: Negative for injury, rash, and discoloration, Neuro: Negative for headache, weakness, numbness, tingling, and seizure. 21:31 : Positive for urinary symptoms, urinary frequency, small amounts, burning with urination. 21:31 Abdomen/GI: Positive for abdominal pain, Negative for nausea, vomiting, and diarrhea. kb Exam: 21:32 Constitutional: This is a well developed, well nourished patient who is awake, alert, kb and in no acute distress. Head/Face: Normocephalic, atraumatic. Chest/axilla: Normal chest wall appearance and motion. Nontender with no deformity. No lesions are appreciated. Cardiovascular: Regular rate and rhythm with a normal S1 and S2. No gallops, murmurs, or rubs. Normal PMI, no JVD. No pulse deficits. Respiratory: Lungs have equal breath sounds bilaterally, clear to auscultation and percussion. No rales, rhonchi or wheezes noted. No increased work of breathing, no retractions or nasal flaring. Back: No spinal tenderness. No costovertebral tenderness. Full range of motion. Skin: Warm, dry with normal turgor. Normal color with no rashes, no lesions, and no evidence of cellulitis. MS/ Extremity: Pulses equal, no cyanosis. Neurovascular intact. Full, normal range of motion. Neuro: Awake and alert, GCS 15, oriented to person, place, time, and situation. Cranial nerves II-XII grossly intact. Motor strength 5/5 in all extremities. Sensory grossly intact. Cerebellar exam normal. Normal gait. 21:32 Abdomen/GI: Inspection: abdomen appears normal, Bowel sounds: normal, Palpation: soft, in all quadrants, mild abdominal tenderness, in the suprapubic area. Vital Signs: 21:18 BP 176 / 75; Pulse 71; Resp 18; Temp 98.3; Pulse Ox 97% on R/A; Weight 64.41 kg; Height em 5 ft. 3 in. (160.02 cm); Pain 6/10; 22:12 BP 161 / 67; Pulse 67; Resp 18; Pulse Ox 98% on R/A; aj1 21:18 Body Mass Index 25.15 (64.41 kg, 160.02 cm) em MDM: 21:11 Patient medically screened. kb 21:31 Data reviewed: vital signs, nurses notes. Data interpreted: Pulse oximetry: on room air kb is 97 %. Interpretation: normal. 22:49 Counseling: I had a detailed discussion with the patient and/or guardian regarding: the kb historical points, exam findings, and any diagnostic results supporting the discharge/admit diagnosis, lab results, the need for outpatient follow up, a family practitioner, to return to the emergency department if symptoms worsen or persist or if there are any questions or concerns that arise at home. 10/18 21:11 Order name: Urine Microscopic Only; Complete Time: 22:49 kb 10/18 21:39 Order name: Urine Dipstick--Ancillary (enter results); Complete Time: 22:46 mw2 10/18 22:49 Order name: Urine Culture [facility] 10/18 21:11 Order name: Urine Dipstick-Ancillary (obtain specimen); Complete Time: 21:38 kb Administered Medications: 23:10 Drug: Pyridium 100 mg Route: PO; aj1 23:15 Follow up: Response: No adverse reaction aj1 23:10 Drug: Augmentin 875 mg Route: PO; aj1 23:15 Follow up: Response: No adverse reaction aj1 23:10 Drug: traMADol 25 mg Route: PO; aj1 23:10 Follow up: Response: No adverse reaction aj1 Disposition: 10/19 03:59 Co-signature as Attending Physician, Buck Richey MD. [email or web address] Disposition: 10/18/20 22:50 Discharged to Home. Impression: Urinary tract infection, site not specified. - Condition is Stable. - Discharge Instructions: Urinary Tract Infection, Adult, [id number]. - Prescriptions for Augmentin 875- 125 mg Oral Tablet - take 1 tablet by ORAL route every 12 hours for 10 days; 20 tablet. Pyridium 200 mg Oral Tablet - take 1 tablet by ORAL route every 8 hours for 3 days; 9 tablet. - Medication Reconciliation Form, Thank You Letter, Antibiotic Education, Prescription Opioid Use form. - Follow up: Emergency Department; When: As needed; Reason: Worsening of condition. Follow up: Private Physician; When: 2 - 3 days; Reason: Recheck today's complaints, Continuance of care, Re-evaluation by your physician. Signatures: Dispatcher [employer] Samantha Forrester, FRANKY ALVAREZP-Cherry Phoenix RN RN Salo Bose RN Buck Overton MD MD [email or web address] Corrections: (The following items were deleted from the chart) 10/18 21:32 21:31 Constitutional: Negative for fever, chills, and weight loss, Cardiovascular: kb Negative for chest pain, palpitations, and edema, Respiratory: Negative for shortness of breath, cough, wheezing, and pleuritic chest pain, Abdomen/GI: Negative for abdominal pain, nausea, vomiting, diarrhea, and constipation, MS/Extremity: Negative for injury and deformity, Skin: Negative for injury, rash, and discoloration, Neuro: Negative for headache, weakness, numbness, tingling, and seizure, kb 23:17 22:50 10/18/2020 22:50 Discharged to Home. Impression: Urinary tract infection, site aj1 not specified. Condition is Stable. Forms are Medication Reconciliation Form, Thank You Letter, Antibiotic Education, Prescription Opioid Use. Follow up: Emergency Department; When: As needed; Reason: Worsening of condition. Follow up: Private Physician; When: 2 - 3 days; Reason: Recheck today's complaints, Continuance of care, Re-evaluation by your physician. kb
[2020-10-18] MEDS ORDERED: PHENAZOPYRIDINE 100MG TAB PO ONE (23:12)
[2020-10-18] MEDS ORDERED: AMOX/K CLAV 875 MG TAB ONE (23:13)
[2020-10-18] MEDS ORDERED: TRAMADOL HCL 50 MG TAB ONE (23:15)
== END 2020-10-18 23:17 | disposition home or self-care (01) ==
LOC: ER 21:04
DX: N39.0 Urinary tract infection, site not specified (principal); I10 Essential (primary) hypertension; Z88.5 Allergy status to narcotic agent; Z88.6 Allergy status to analgesic agent; Z88.8 Allergy status to other drugs, medicaments and biological substances
CPT/HCPCS: 81003; 81015; 87086; 87088; 99283